=== PATIENT | male | born 1990 | race Caucasian/White ===

== ENCOUNTER 2023-02-10 22:35 | Emergency (ER) | payer MEDICARE, SELFPAY ==
[2023-02-10 22:35] VITALS: BP 140/87; PULSE 67; RESP 17; TEMP 36.6; O2SAT 99; BMI 28.7
--- NOTE | 2023-02-10 22:50 | ECG_ITS ---
APPROVED REPORT Exam: Resting ECG HR:84 bpm ECG Measurements Heart Rate 84 AXES IL 147 P 22 QRSd 101 QRS 34 QT 377 T -7 QTc 418 Conclusion SINUS RHYTHM POSSIBLE RIGHT VENTRICULAR CONDUCTION DELAY [RSR (QR) IN V1/V2] MODERATE ST DEPRESSION [0.05+ mV ST DEPRESSION] ABNORMAL ECG UNCONFIRMED REPORT Electronically signed by : Shubham Hinds MD 02/11/2023 21:25:46
--- NOTE | 2023-02-10 22:51 | PC.NURSE ---
in room talking with patient at this time.
--- NOTE | 2023-02-10 22:58 | PC.NURSE ---
BS 169 at this time
[2023-02-10 23:20] VITALS: BP 141/72; PULSE 71; O2SAT 97
--- NOTE | 2023-02-11 00:22 | PC.NURSE ---
Handed off report to shift boss
--- NOTE | 2023-02-11 00:28 | HMH.EDGENADL ---
Discharge Plan Disposition Patient Disposition: Home, Self-Care Prescriptions Prescriptions: No Action ticagrelor 90 MG tablet 90 mg PO BID Referrals Follow up/Referrals: Charla Santo [Primary Care Provider] - See instructions Activity Restrictions/Add. Instructions Additional Instructions/Restrictions: Please follow-up with your primary care provider. Please return to the emergency department if you develop any new or worsening symptoms or become concerned for your health. Clinical Impressions Clinical Impression: Alcohol intoxication delirium Discharge ED Provider: Ezekiel Stacy General Adult HPI General Chief complaint: Shortness of Breath/Dyspnea Stated complaint: ETOH Time Seen by Provider: 02/10/23 23:00 Mode of Arrival: EMS Source of Information: Patient and Significant Other Limitations: No Limitations Description of Symptoms (Recalled from ER Triage Doc. by RN): Presents to ED via EMS. EMS stated they got called out to his camper for SOA. Patient is unsure why he is here but states he drank a little less than a pint of Whiskey and smoked less than a gram of weed. After talking to she states patient was hard to arouse and was extremely short of air. She reports patient was Dx with bronchitis this morning. PMH:1 stent in 2019, diabetic, and Hep C. Patient takes baby aspirin History of Present Illness HPI narrative: 32-year-old male, history of insulin-dependent diabetes, presents with EMS with reported shortness of breath. He and his girlfriend and several others were drinking, patient has also smoked marijuana today. Per girlfriend, patient would intermittently be crying and then go unresponsive, prompting presentation to ER. On arrival patient has some slurred speech consistent with intoxication, has normal vital signs, has no acute complaints at this time. Request to go pee. Blood sugar normal with EMS Related Data Home Medications Medication Instructions Recorded Confirmed ticagrelor 90 mg tablet 90 mg PO BID heart 11/12/18 11/12/18 Allergies Allergy/AdvReac Type Severity Reaction Status Date / Time buspirone [BUSPIRONE] Allergy Unknown HEART Verified 01/03/18 18:55 PROBLEM codeine [CODEINE] Allergy Unknown I-HIVES Verified 01/03/18 18:55 [facility] Disclaimer: The information contained in this section may have been updated after the patient was seen, as this information can be updated by other users. Social History Smoking Status: Never smoker alcohol intake: never substance use type: marijuana current occupational status: other Travel in the last 8 weeks: None ROS Obtained: Yes All systems reviewed & no additional complaints except as documented Physical Exam General General appearance: alert and appears intoxicated Head Head exam: atraumatic and normocephalic Eye Eye exam: Present normal appearance, PERRL, EOMI and nystagmus ENT ENT exam: Present normal oropharynx and normal external ear exam Neck Neck exam: Present normal inspection and full ROM Chest Chest inspection: Present normal inspection and symmetric chest wall rise; Absent tenderness Respiratory Respiratory exam: Present normal lung sounds bilaterally; Absent respiratory distress Cardiovascular Cardiovascular exam: Present regular rate and normal rhythm Abdominal Exam Abdominal exam: Present soft; Absent distention, tenderness or guarding Extremities Exam Extremities exam: Present normal inspection; Absent edema or joint swelling Back Exam Back exam: Present normal inspection; Absent tenderness Neurological Exam Neurological exam: Present alert and other (Answers to some questions, appears intoxicated) Psychiatric Psychiatric exam: Present other (Anxious, intermittently crying versus somnolent); Absent homicidal ideation or suicidal ideation Skin Skin exam: Present warm, dry and normal color Lymphatic Lymphatic Findings: no adenopathy Medical Decision Making Medical Records Medic
--- NOTE | 2023-02-11 02:47 | PC.NURSE ---
pt will not keep bp cuff or pulse ox on no vitals obtained but patient checked on
[2023-02-11 02:52] VITALS: BP 117/70
[2023-02-11 03:00] VITALS: BP 128/78
--- NOTE | 2023-02-11 03:05 | PC.NURSE ---
BS 149 at this time
[2023-02-11 03:07] VITALS: BP 128/78; PULSE 82; RESP 12; TEMP 36.8; O2SAT 99
[2023-02-11 03:11] LABS: POC Glucose,Bedside 149 (70-110)
== END 2023-02-11 03:10 | disposition home or self-care (01) ==
PROVIDERS: Emergency Provider Emergency Medicine; PCP Family Medicine
DX: F10.121 Alcohol abuse with intoxication delirium (principal); E11.9 Type 2 diabetes mellitus without complications; Z79.4 Long term (current) use of insulin
CPT/HCPCS: 82962; 93005; 99284

== ENCOUNTER 2023-08-15 15:32 | Observation (INO) | payer MEDICARE, SELFPAY ==
[2023-08-15] VITALS (14 sets, daily range): BP systolic 120–158; BP diastolic 70–96; PULSE 15–80; RESP 10–20; TEMP 36.6–37.1; O2SAT 95–99; BMI 29.5
--- NOTE | 2023-08-15 15:24 | ECG_ITS ---
APPROVED REPORT Exam: Resting ECG HR:64 bpm ECG Measurements Heart Rate 64 AXES RI 127 P 32 QRSd 112 QRS 28 QT 369 T 18 QTc 378 Conclusion SINUS RHYTHM MODERATE INTRAVENTRICULAR CONDUCTION DELAY [110+ ms QRS DURATION] BORDERLINE ECG UNCONFIRMED REPORT Electronically signed by : Matt Ruffin, 08/15/2023 22:54:18
--- NOTE | 2023-08-15 15:34 | ED_ITS ---
Discharge Plan Disposition Patient Disposition: Admitted Prescriptions Prescriptions: No Action ticagrelor 90 MG tablet 90 mg PO BID Patient Comments: Patient no longer taking Rx Instructions: Patient no longer taking atorvastatin 80 mg tablet 80 mg PO DAILY isosorbide mononitrate 30 mg tablet extended release 24 hr 30 mg PO DAILY clopidogrel 75 mg tablet 75 mg PO DAILY doxycycline monohydrate 100 mg tablet 100 mg PO BID pantoprazole 40 mg tablet,delayed release (DR/EC) 40 mg PO BID lisinopril 10 mg tablet 10 mg PO DAILY nitroglycerin 0.4 mg tablet, sublingual 0.4 mg sublingual NEEDED PRN (Reason: .) metoprolol tartrate 25 mg tablet 25 mg PO Q12 Clinical Impressions Clinical Impression: Non-ST elevation UT (NSTEMI) Discharge ED Provider: Lisa Ruffin General Adult HPI <ROMAINE Hampton - Last Filed: 08/15/23 15:43> General Chief complaint: Chest Pain Stated complaint: Chest Pain Time Seen by Provider: 08/15/23 15:39 Related Data Home Medications Medication Instructions Recorded Confirmed ticagrelor 90 mg tablet 90 mg PO BID heart 11/12/18 11/12/18 atorvastatin 80 mg tablet 80 mg PO DAILY 08/15/23 08/15/23 clopidogrel 75 mg tablet 75 mg PO DAILY 08/15/23 08/15/23 doxycycline monohydrate 100 mg 100 mg PO BID 08/15/23 08/15/23 tablet isosorbide mononitrate 30 mg 30 mg PO DAILY 08/15/23 08/15/23 tablet,extended release 24 hr lisinopril 10 mg tablet 10 mg PO DAILY 08/15/23 08/15/23 metoprolol tartrate 25 mg tablet 25 mg PO Q12 08/15/23 08/15/23 nitroglycerin 0.4 mg sublingual 0.4 mg sublingual NEEDED PRN . 08/15/23 08/15/23 tablet pantoprazole 40 mg tablet,delayed 40 mg PO BID 08/15/23 08/15/23 release Allergies Allergy/AdvReac Type Severity Reaction Status Date / Time buspirone [BUSPIRONE] Allergy Unknown HEART Verified 01/03/18 18:55 PROBLEM codeine [CODEINE] Allergy Unknown I-HIVES Verified 01/03/18 18:55 <Lisa Ruffin MD - Last Filed: 08/15/23 16:53> History of Present Illness HPI narrative: Patient is a 33-year-old male with a history of coronary disease presents today with chest pain. States he first had a STEMI in 2019 at which point he was rushed to the [facility] had a stent placed at that point. Had a heart cath just a few days ago was discharged on from [facility] in [facility] he initially presented to [facility] where he had negative troponins but was sent ultimately to get a heart cath at [facility], [place] stating that he had another stent was placed in his LAD. He has had intermittent chest pain over the last 2 days has been on constant, nonexertional, not associated with dyspnea or diaphoresis and feels like something is stuck in my chest he has no difficulty with swallowing is tolerating his secretions well. Is on aspirin and Plavix per discharge medication list. He has a follow-up appointment tomorrow with Dr. Barrera states that he has his neighbor. Did take a nitroglycerin prior to arrival without any immediate relief. [facility] <ROMAINE Hampton - Last Filed: 08/15/23 15:43> [facility] Disclaimer: The information contained in this section may have been updated after the patient was seen, as this information can be updated by other users. Social History Smoking Status: Former smoker tobacco type: cigarettes packs per day: 1 alcohol intake: never substance use type: marijuana current occupational status: other Travel in the last 8 weeks: None <ROMAINE Hampton - Last Filed: 08/15/23 15:43> ROS Obtained: Yes Systems reviewed as appropriate & no additional complaints except as documented Physical Exam <ROMAINE Hampton - Last Filed: 08/15/23 15:43> General General appearance: alert and in no apparent distress Head Head exam: atraumatic and normal inspection Eye Eye exam: Present normal appearance, PERRL and EOMI ENT ENT exam: Present normal exam, normal oropharynx and mucous membranes moist Neck Neck exam: Present normal inspection, full ROM and trachea midline; Absent lymphadenopathy Chest Chest inspection: Present normal inspection and symmetric chest wall rise Respiratory Respiratory exam: Present normal lung sounds bilaterally; Absent accessory muscle use Cardiovascular Cardiovascular exam: Present regular rate, normal rhythm, normal heart sounds, +S1 and +S2 Abdominal Exam Abdominal exam: Present soft and normal bowel sounds; Absent tenderness, guarding or rebound Extremities Exam Extremities exam: Present normal inspection and full ROM Neurological Exam Neurological exam: Present alert, oriented X3 and CN II-XII intact Psychiatric Psychiatric exam: Present normal affect and normal mood Skin Skin exam: Present warm, dry and normal color Lymphatic Lymphatic Findings: no adenopathy Medical Decision Making <ROMAINE Hampton - Last Filed: 08/15/23 15:43> Vital Signs: 08/15/23 15:32 08/15/23 15:40 08/15/23 16:00 Temperature 98.0 F Temperature Source Oral Pulse Rate 68 58 L Pulse Rate [Left Radial] 15 L Respiratory Rate 15 20 Blood Pressure 126/81 Blood Pressure [Right Arm] 158/83 H Blood Pressure Mean 99 Blood Pressure Mean [Right Arm] 108 Blood Pressure Source Blood Pressure Source [Right Arm] Automatic Cuff Blood Pressure Position Blood Pressure Position [Right Arm] Sitting 02 Sat by Pulse Oximetry 98 98 Oxygen Delivery Method Room Air 08/15/23 16:02 08/15/23 16:30 Temperature 98.1 F Temperature Source Oral Pulse Rate 80 52 L Pulse Rate [Left Radial] Respiratory Rate 18 10 L Blood Pressure 155/96 H 120/80 Blood Pressure [Right Arm] Blood Pressure Mean Blood Pressure Mean [Right Arm] Blood Pressure Source Automatic Cuff Blood Pressure Source [Right Arm] Blood Pressure Position Sitting Blood Pressure Position [Right Arm] 02 Sat by Pulse Oximetry 99 Oxygen Delivery Method Room Air Room Air Lab Data Lab Results 08/15/23 15:35: WBC 12.3 H, RBC 4.30 L, Hgb 13.0 L, Hct 40.0 L, MCV 93.0, MCH 30.3, MCHC 32.6, RDW 13.6, Plt Count 317, MPV 7.6, Neut % (Auto) 58.7, Lymph % (Auto) 34.1, Trinity % (Auto) 4.8, Eos % (Auto) 1.6, Baso % (Auto) 0.7, Neut # (Auto) 7.2, Lymph # (Auto) 4.2, Trinity # (Auto) 0.6, Eos # (Auto) 0.2, Baso # (Auto) 0.1, Sodium 139, Potassium 4.3, Chloride 109 H, Carbon Dioxide 32 H, A nion Gap 2.3 L, BUN 17, Creatinine 0.80, Estimated Creat Clear 192, Estimated GFR 111, Est GFR ( Amer) 134, Glucose 217 H, Calcium 9.6, Total Bilirubin 0.5, AST 23, ALT 22, Alkaline Phosphatase 71, Troponin I 0.10 H, Total Protein 6.8, Albumin 3.8, Globulin 3.0, Albumin/Globulin Ratio 1.3, Lipase 116 08/15/23 15:35 08/15/23 15:35 Orders (Tests/Meds): ED MEDICATIONS Generic Name Dose Route Start Last Admin Trade Name Freq PRN Reason Stop Dose Admin Morphine Sulfate 4 mg 08/15/23 16:49 Morphine 4mg/Ml Syringe IV 08/15/23 16:50 ONCE ONE Discontinued Medications Generic Name Dose Route Start Last Admin Trade Name Freq PRN Reason Stop Dose Admin Acetaminophen 1,000 mg 08/15/23 15:39 08/15/23 15:50 Acetaminophen 1,000mg/100ml Vial IV 08/15/23 15:40 Not Given ONCE ONE Belladonna Alkaloids 60 ml 08/15/23 15:39 08/15/23 15:50 Belladonna Alkaloids 60 Ml Ml PO 08/15/23 15:40 Not Given ONCE ONE Lactated Ringer's 1,000 mls @ 999 mls/hr 08/15/23 15:39 08/15/23 15:51 Lactated Ringer's 1000 Ml Bag IV 08/15/23 16:39 Not Given .Q1H1M ONE Ketorolac Tromethamine 15 mg 08/15/23 15:39 08/15/23 15:51 Ketorolac 30mg/Ml Vial IV 08/15/23 15:40 Not Given ONCE ONE Sodium Chloride 10 ml 08/15/23 15:40 Sodium Chloride 0.9% 10ml Flush Syringe IV 09/14/23 15:39 NEEDED PRN Maintain IV Site ORDERS Category Date Time Status Chest XR -- portable [XR chest portable] Stat Exams 08/15/23 15:45 Taken CBC w/Auto Diff [Complete Blood Count Auto Diff] Stat Lab 08/15/23 15:35 Completed CMP [Comprehensive Metabolic Panel] Stat Lab 08/15/23 15:35 Completed Lipase Stat Lab 08/15/23 15:35 Completed Troponin I Q3H Lab 08/15/23 18:45 Ordered Troponin I Q3H Lab 08/15/23 19:00 Ordered Troponin I Q3H Lab 08/15/23 21:45 Ordered Troponin I Q3H Lab 08/15/23 22:00 Ordered Troponin I Stat Lab 08/15/23 15:35 Completed Medical Decision Narrative: In summary patient is a [age, sex] who presents to the emergency department for evaluation of [complaint]. Patient is [hemodynamically stable/unstable] upon arrival, [febrile/afebrile]. [Unremarkable physical exam, nonfocal exam versus focal remarkable exam]. Differential diagnosis includes [DDx]. Initial workup will be conducted with [hematologic labs, imaging, respiratory swab, describe workup]. Initial interventions include [crystalloid bolus, medications, p.o. challenge, etc.] initial workup reviewed by me [hematologic labs are remarkable for... Imaging remarkable for... Urinalysis remarkable for]. Upon repeat evaluation [patient had acceptable resolution of symptoms, had persistent pain for which additional interventions were conducted (describe interventions), tolerated p.o., was ambulatory, etc.]. Given this [patient is appropriate for discharge at this time and will be discharged with a prescription for... The case was discussed with hospital medicine regarding management and they will admit the patient their service for continued evaluation at this time... Etc.] Places where you can increase complexity: I informally interpreted the patient's chest x-ray or CT read and is remarkable for... Documenting what the front desk monitor shows with rate and rhythm Consideration of test but deferring. Ex: I considered chest x-ray on this patient however given that they have no oxygen requirement and are clear to auscultation all lung landrum will be deferred. Social determinants of health: Given that patient is undomiciled increases complexity. Given that patient has polysubstance abuse compounds all aspects of care <Lisa Ruffin MD - Last Filed: 08/15/23 16:53> Cristobal Inquiry Pt receiving controlled substance: No Vital Signs: 08/15/23 15:32 08/15/23 15:40 08/15/23 16:00 Temperature 98.0 F Temperature Source Oral Pulse Rate 68 58 L Pulse Rate [Left Radial] 15 L Respiratory Rate 15 20 Blood Pressure 126/81 Blood Pressure [Right Arm] 158/83 H Blood Pressure Mean 99 Blood Pressure Mean [Right Arm] 108 Blood Pressure Source Blood Pressure Source [Right Arm] Automatic Cuff Blood Pressure Position Blood Pressure Position [Right Arm] Sitting 02 Sat by Pulse Oximetry 98 98 Oxygen Delivery Method Room Air 08/15/23 16:02 08/15/23 16:30 Temperature 98.1 F Temperature Source Oral Pulse Rate 80 52 L Pulse Rate [Left Radial] Respiratory Rate 18 10 L Blood Pressure 155/96 H 120/80 Blood Pressure [Right Arm] Blood Pressure Mean Blood Pressure Mean [Right Arm] Blood Pressure Source Automatic Cuff Blood Pressure Source [Right Arm] Blood Pressure Position Sitting Blood Pressure Position [Right Arm] 02 Sat by Pulse Oximetry 99 Oxygen Delivery Method Room Air Room Air Lab Data Lab results reviewed: Yes I reviewed the patient's lab results. Lab Results 08/15/23 15:35: WBC 12.3 H, RBC 4.30 L, Hgb 13.0 L, Hct 40.0 L, MCV 93.0, MCH 30.3, MCHC 32.6, RDW 13.6, Plt Count 317, MPV 7.6, Neut % (Auto) 58.7, Lymph % (Auto) 34.1, Trinity % (Auto) 4.8, Eos % (Auto) 1.6, Baso % (Auto) 0.7, Neut # (Auto) 7.2, Lymph # (Auto) 4.2, Trinity # (Auto) 0.6, Eos # (Auto) 0.2, Baso # (Auto) 0.1, Sodium 139, Potassium 4.3, Chloride 109 H, Carbon Dioxide 32 H, A nion Gap 2.3 L, BUN 17, Creatinine 0.80, Estimated Creat Clear 192, Estimated GFR 111, Est GFR ( Amer) 134, Glucose 217 H, Calcium 9.6, Total Bilirubin 0.5, AST 23, ALT 22, Alkaline Phosphatase 71, Troponin I 0.10 H, Total Protein 6.8, Albumin 3.8, Globulin 3.0, Albumin/Globulin Ratio 1.3, Lipase 116 Orders (Tests/Meds): ED MEDICATIONS Generic Name Dose Route Start Last Admin Trade Name Freq PRN Reason Stop Dose Admin Morphine Sulfate 4 mg 08/15/23 16:49 Morphine 4mg/Ml Syringe IV 08/15/23 16:50 ONCE ONE Discontinued Medications Generic Name Dose Route Start Last Admin Trade Name Freq PRN Reason Stop Dose Admin Acetaminophen 1,000 mg 08/15/23 15:39 08/15/23 15:50 Acetaminophen 1,000mg/100ml Vial IV 08/15/23 15:40 Not Given ONCE ONE Belladonna Alkaloids 60 ml 08/15/23 15:39 08/15/23 15:50 Belladonna Alkaloids 60 Ml Ml PO 08/15/23 15:40 Not Given ONCE ONE Lactated Ringer's 1,000 mls @ 999 mls/hr 08/15/23 15:39 08/15/23 15:51 Lactated Ringer's 1000 Ml Bag IV 08/15/23 16:39 Not Given .Q1H1M ONE Ketorolac Tromethamine 15 mg 08/15/23 15:39 08/15/23 15:51 Ketorolac 30mg/Ml Vial IV 08/15/23 15:40 Not Given ONCE ONE Sodium Chloride 10 ml 08/15/23 15:40 Sodium Chloride 0.9% 10ml Flush Syringe IV 09/14/23 15:39 NEEDED PRN Maintain IV Site ORDERS Category Date Time Status Chest XR -- portable [XR chest portable] Stat Exams 08/15/23 15:45 Taken CBC w/Auto Diff [Complete Blood Count Auto Diff] Stat Lab 08/15/23 15:35 Completed CMP [Comprehensive Metabolic Panel] Stat Lab 08/15/23 15:35 Completed Lipase Stat Lab 08/15/23 15:35 Completed Troponin I Q3H Lab 08/15/23 18:45 Ordered Troponin I Q3H Lab 08/15/23 19:00 Ordered Troponin I Q3H Lab 08/15/23 21:45 Ordered Troponin I Q3H Lab 08/15/23 22:00 Ordered Troponin I Stat Lab 08/15/23 15:35 Completed ECG Data Tracing #1: I reviewed this ECG and interpreted as documented below: Ventricular rate of 64 there is normal axis no acute ischemic changes noted no significant conduction abnormalities HEART Score History (anamnesis): Slightly suspicious ECG: Normal Age: <45 years Risk factors: Atherosclerosis history Troponin: > 3x normal limit HEART Score: 4 Medical Decision Narrative: Patient is a 33-year-old with above history. Has a nonischemic EKG is very well-appearing on my evaluation will need serial troponins to rule out acute coronary syndrome. In our system from 2017 he had an elevated troponin but at that time had an abnormal methamphetamine screen he admits to ongoing marijuana smoking but denies any other drug use. We are attempting to get records from [facility] [place]. He is PERC negative for pulmonary embolism is not on my differential at this point. His description of having something stuck in his throat is nonspecific he has no symptoms of an esophageal obstruction. Will reassess after his initial workup is complete. X-ray performed which I first interpreted shows no acute cardiopulmonary emergency. Records were obtained which showed that patient had serial troponins that were negative at [place] he was transferred for unstable angina treated for acute coronary syndrome had a left heart cath performed at [facility] [place] which showed severe two-vessel disease including his LAD which had 80% proximal 95% distal disease this was successfully stented. There was also 90% stenosis in RPDA which was not stented for unclear reasons. He also had serially negative high-sensitivity troponins at [facility] [place]. Today is first troponin is mildly elevated 3 times upper limit of normal. He is also ongoing chest discomfort morphine has been administered. I discussed the case with Dr. Barrera and we agreed to admit the patient for further evaluation and management. Will continue to trend troponins and get an echo in the morning. It is possible this is just a vasculitis or spasming secondary to recent stent placement I would expect that his troponin will trend down without the case. However it continues to trend up this certainly could be ongoing tissue damage. He is currently on dual antiplatelet therapy including aspirin and Plavix. He has had his medications today. Will defer further anticoagulation to hospital medicine. I spoke with Dr. Larson after discussion with cardiology who will admit the patient for further evaluation and management the patient is agreeable to this plan. Critical Care <Lisa Ruffin MD - Last Filed: 08/15/23 16:53> Critical Care Time Critical Care Time: Yes Attestation: On 08/15/23, the high probability of a clinically significant, sudden or life threatening deterioration of the following system(s) required my full and direct attention, intervention and personal management. The time I documented below is in addition to time spent performing reported procedures but includes the following listed in this critical care notation. Total Time Total Critical Care Time: 35
--- NOTE | 2023-08-15 15:45 | XR_ITS ---
FINAL REPORT CLINICAL HISTORY: Chest pain COMPARISON: None FINDINGS: A single portable view of the chest was obtained. The heart size and pulmonary vascularity are within normal limits. The mediastinum is within normal limits. No acute pulmonary abnormality is identified. The bony thorax is intact. IMPRESSION: No active cardiopulmonary disease. Reviewed, Interpreted and Dictated by Remington Wei III, MD Transcribed by Estrellita Rich Authenticated and [facility]
--- NOTE | 2023-08-15 15:50 | PC.NURSE ---
Dr. Ruffin at BS for pt eval
--- NOTE | 2023-08-15 15:50 | PC.NURSE ---
portable chest xray at bedside
[2023-08-15 15:51] LABS: Basophils # 0.1 K/mm3 (0-0.2); Basophils % 0.7 % (0.1-2.0); Eosinophils # 0.2 K/mm3 (0.0-0.4); Eosinophils % 1.6 % (0.1-12.0); Lymphocytes # 4.2 K/mm3 (0.7-4.5); Lymphocytes % 34.1 % (10-50); Mean Corpuscular HGB Conc 32.6 g/dL (31.8-35.4); Mean Corpuscular Hemoglobin 30.3 pg (27.0-31.2); Mean Platelet Volume 7.6 fl (7.4-10.4); Monocytes # 0.6 K/mm3 (0.1-1.0); Monocytes % 4.8 % (1.7-9.3); Neutrophils # 7.2 K/mm3 (1.8-7.8); Neutrophils % 58.7 % (37.0-80.0); Platelet Count 317 K/mm3 (142-424); Red Cell Distribution Width 13.6 % (11.5-17.5); White Blood Count 12.3 K/mm3 (4.8-10.8)
[2023-08-15 15:52] LABS: Chloride 109 mmol/L (98-107); Potassium 4.3 mmoL/L (3.5-5.1); Sodium 139 mmol/L (136-145)
--- NOTE | 2023-08-15 15:52 | PC.NURSE ---
called [facility] for records on pt recent visit and cath procedure
[2023-08-15 15:55] LABS: Alanine Aminotransferase 22 U/L (12-78); Albumin Level 3.8 g/dl (3.5-5.0); Albumin/Globulin Ratio 1.3 (1.1-1.8); Alkaline Phosphatase 71 U/L (38-126); Anion Gap 2.3 mEq/L (5-15); Aspartate Amino Transferase 23 U/L (17-59); Bilirubin,Total 0.5 mg/dl (0.2-1.3); Blood Urea Nitrogen 17 mg/dl (9-20); Calcium 9.6 mg/dl (8.4-10.2); Carbon Dioxide 32 mmol/L (22.0-30.0); Creatinine Clearance Estimated 192 mL/min (50-200); Estimated Glomerular Filt Rate 111 ml/min (>60); GFR (African American) 134 ML/MIN (>60); Glucose 217 mg/dl (74-100); Total Protein,Serum 6.8 g/dl (6.3-8.2)
[2023-08-15 16:15] LABS: Lipase 116 U/L (23-300)
--- NOTE | 2023-08-15 16:58 | PC.NURSE ---
house called for bed
[2023-08-15] MEDS: MORPHINE 4MG/ML SYRINGE 4 MG IV (17:10)
--- NOTE | 2023-08-15 17:22 | PC.NURSE ---
CALLED REPORT TO LIONEL FUENTES
--- NOTE | 2023-08-15 17:29 | PC.NURSE ---
arrived by w/c from ED
--- NOTE | 2023-08-15 17:45 | P.HP_ITS ---
History of Present Illness *Admission Date: 08/15/23 *Reason for visit:: chest pain *History of present illness: Patient is a 53-year-old female with past medical history of CAD, hypertension, hyperlipidemia who presents to the hospital due to complaint of chest pain for the past 48 hours, it feels like a heaviness in his chest, denies associated shortness of breath nausea vomiting. According the patient he recently had cardiac performed in [facility]. He follows up with Dr. Jorgensen as his slitting machine feeder who recommended troponin monitoring and echocardiogram. [facility] Disclaimer: The information contained in this section may have been updated after the patient was seen, as this information can be updated by other users. Medical History (Updated 08/15/23 @ 17:54 by Tomasz Mesa RN) Diabetes mellitus, type 2 History of left heart catheterization (LHC) Family History (Updated 08/15/23 @ 17:52 by Tomasz Mesa RN) Other Family history of hypertension Family history of myocardial infarction Social History (Updated 08/15/23 @ 17:55 by Tomasz Mesa RN) Smoking Status: Former smoker tobacco type: cigarettes packs per day: 1 alcohol intake: never substance use type: marijuana current occupational status: employed and other Travel in the last 8 weeks: None adopted: No caregiver/support person: No foster care: No household members: spouse housing: house lives independently: Yes marital status: education level: high school service: No jail: No Review of Systems Review of Systems Review of systems:: pertinent systems reviewed and negative unless documented below Meds Home Medications and Allergies Home Medications Medication Instructions Recorded Confirmed Type ticagrelor 90 mg tablet 90 mg PO BID heart 11/12/18 11/12/18 History atorvastatin 80 mg tablet 80 mg PO DAILY 08/15/23 08/15/23 History clopidogrel 75 mg tablet 75 mg PO DAILY 08/15/23 08/15/23 History doxycycline monohydrate 100 mg 100 mg PO BID 08/15/23 08/15/23 History tablet insulin glargine 100 unit/mL (3 20 unit SQ AM 08/15/23 08/15/23 History mL) subcutaneous pen (Lantus Solostar U-100 Insulin) insulin glargine 100 unit/mL (3 25 unit SQ HS 08/15/23 08/15/23 History mL) subcutaneous pen (Lantus Solostar U-100 Insulin) isosorbide mononitrate 30 mg 30 mg PO DAILY 08/15/23 08/15/23 History tablet,extended release 24 hr lisinopril 10 mg tablet 10 mg PO DAILY 08/15/23 08/15/23 History metoprolol tartrate 25 mg tablet 25 mg PO Q12 08/15/23 08/15/23 History nicotine 21 mg/24 hr daily 1 patch transdermal Q24H 08/15/23 08/15/23 History transdermal patch nitroglycerin 0.4 mg sublingual 0.4 mg sublingual NEEDED PRN . 08/15/23 08/15/23 History tablet pantoprazole 40 mg tablet,delayed 40 mg PO BID 08/15/23 08/15/23 History release New Prescriptions to Start Prescriptions: Allergies Allergy/AdvReac Type Severity Reaction Status Date / Time buspirone [BUSPIRONE] Allergy Unknown HEART Verified 01/03/18 18:55 PROBLEM codeine [CODEINE] Allergy Unknown I-HIVES Verified 01/03/18 18:55 fentanyl Allergy Anaphylaxis Verified 08/15/23 18:06 Exam Data for Last 24 hours Vital signs and Labs for Last 24 Hours: Temp Pulse Resp BP Pulse Ox O2 Del Method 97.9 F 52 L 16 144/76 H 98 Room Air 08/15/23 17:24 08/15/23 17:24 08/15/23 17:24 08/15/23 17:24 08/15/23 17:01 08/15/23 17:24 Laboratory Results - last 24 hr 08/15/23 15:35: WBC 12.3 H, RBC 4.30 L, Hgb 13.0 L, Hct 40.0 L, MCV 93.0, MCH 30.3, MCHC 32.6, RDW 13.6, Plt Count 317, MPV 7.6, Neut % (Auto) 58.7, Lymph % (Auto) 34.1, [place] % (Auto) 4.8, Eos % (Auto) 1.6, Baso % (Auto) 0.7, Neut # (Auto) 7.2, Lymph # (Auto) 4.2, [place] # (Auto) 0.6, Eos # (Auto) 0.2, Baso # (Auto) 0.1, Sodium 139, Potassium 4.3, Chloride 109 H, Carbon Dioxide 32 H, Anion Gap 2.3 L, BUN 17, Creatinine 0.80, Estimated Creat Clear 192, Estimated GFR 111, Est GFR ( Amer) 134, Glucose 217 H, Calcium 9.6, Total Bilirubin 0.5, AST 23, ALT 22, Alkaline Phosphatase 71, Troponin I 0.10 H, Total Protein 6.8, Albumin 3.8, Globulin 3.0, Albumin/Globulin Ratio 1.3, Lipase 116 I & O for Last 24 hours: Intake & Output 08/12/23 08/13/23 08/14/23 08/15/23 23:59 23:59 23:59 23:59 Weight 104.326 kg Constitutional Constitutional: no acute distress *Routine HEENT Exam Head: Present normocephalic Eye: Present EOMI and PERRL ENT: Present mucous membranes moist *Routine Neck Exam Neck: Present supple; Absent lymphadenopathy *Routine Respiratory Exam Respiratory: Present CTA bilaterally *Routine Cardiovascular Exam Cardiovascular: Present RRR *Routine Abdominal Exam Abdominal: Present soft and normoactive bowel sounds; Absent tenderness *Routine Rectal Exam Rectal:: deferred *Routine Genitalia Exam Genitalia:: deferred *Routine Extremities Exam Extremities: Absent cyanosis, clubbing or edema *Routine Skin Exam Skin: Present warm; Absent rash *Routine Neurological Exam Neurological: Present alert and oriented X3 Assessment and Plan *Assessment and plan (1) Non-ST elevation AL (NSTEMI): Status: Acute Category: Medical Code(s): I21.4 - Non-ST elevation (NSTEMI) myocardial infarction (2) Uncontrolled diabetes mellitus: Status: Acute Category: Medical Code(s): E11.65 - Type 2 diabetes mellitus with hyperglycemia Plan Patient is a 53-year-old female with past medical history of CAD, hypertension, hyperlipidemia who presents to the hospital due to complaint of chest pain for the past 48 hours, it feels like a heaviness in his chest, denies associated shortness of breath nausea vomiting. According the patient he recently had cardiac performed in [facility]. He follows up with Dr. Jorgensen as his slitting machine feeder who recommended troponin monitoring and echocardiogram. 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
[2023-08-15] MEDS: HEPARIN SODIUM 5,000 UNIT/ML VIAL 5000 UNIT SQ (18:11)
[2023-08-15] MEDS: NITROGLYCERIN 0.4MG SL TABLET 0.400000000000000022 MG SL ×2 (19:30→19:35)
--- NOTE | 2023-08-15 19:31 | ECG_ITS ---
APPROVED REPORT Exam: Resting ECG HR:65 bpm ECG Measurements Heart Rate 65 AXES OH 125 P 19 QRSd 101 QRS 34 QT 404 T 25 QTc 415 Conclusion SINUS RHYTHM WITH SINUS ARRHYTHMIA NORMAL ECG UNCONFIRMED REPORT Electronically signed by : Shubham Hinds MD 08/16/2023 21:35:45
[2023-08-15] MEDS: MORPHINE 2MG/ML SYRINGE 1 MG IV ×3 (19:41→23:56)
[2023-08-15 19:52] LABS: Troponin I 0.11 ng/ml (0.00-0.034)
[2023-08-15] MEDS: TICAGRELOR 90MG TABLET 90 MG PO (20:39)
[2023-08-15] MEDS: PANTOPRAZOLE 40MG TABLET 40 MG PO (20:39)
[2023-08-15 22:10] LABS: POC Glucose,Bedside 124 (70-110)
[2023-08-15 22:16] LABS: Troponin I 0.12 ng/ml (0.00-0.034)
[2023-08-15] MEDS: METOPROLOL TARTRATE 25MG TABLET 25 MG PO (23:32)
[2023-08-15] MEDS: NICOTINE 21MG/24HR PATCH 21 MG TD (23:33)
[2023-08-16] VITALS (10 sets, daily range): BP systolic 101–135; BP diastolic 55–88; PULSE 50–70; RESP 16–18; TEMP 36.6–36.8; O2SAT 98–99; BMI 30.9
--- NOTE | 2023-08-16 01:43 | PC.NURSE ---
pt reported increased mid sternal cp that begins in the epigastric region and goes into mid sternum down left arm. reports sharp in nature, pain 10/10. ekg completed. bp 132/81 hr. 55, 1 ntg sl given. repeat bp 135/74 hr 58, pain unchanged, 2nd ntg sl administered. repeat bp 129/70, hr 69, pain unrelieved. morphine 1 mg ivp given with decrease in pain from a 10 down to 8. notified ayaka hobson. notified dr urbina of event also. no new orders received
[2023-08-16] MEDS: HEPARIN SODIUM 5,000 UNIT/ML VIAL 5000 UNIT SQ ×2 (02:10→08:30)
[2023-08-16 02:54] LABS: Troponin I 0.13 ng/ml (0.00-0.034)
[2023-08-16] MEDS: MORPHINE 2MG/ML SYRINGE 1 MG IV ×2 (05:51→08:27)
[2023-08-16 06:04] LABS: POC Glucose,Bedside 134 (70-110)
[2023-08-16 06:55] LABS: Basophils # 0.1 K/mm3 (0-0.2); Basophils % 0.7 % (0.1-2.0); Eosinophils # 0.3 K/mm3 (0.0-0.4); Eosinophils % 2.5 % (0.1-12.0); Hematocrit 39.5 % (42.0-52.0); Hemoglobin 12.9 g/dL (14.1-18.0); Lymphocytes # 4.4 K/mm3 (0.7-4.5); Lymphocytes % 39.2 % (10-50); Mean Corpuscular HGB Conc 32.8 g/dL (31.8-35.4); Mean Corpuscular Hemoglobin 30.4 pg (27.0-31.2); Mean Corpuscular Volume 92.6 fl (80-94); Mean Platelet Volume 7.5 fl (7.4-10.4); Monocytes # 0.6 K/mm3 (0.1-1.0); Monocytes % 5.5 % (1.7-9.3); Neutrophils # 5.8 K/mm3 (1.8-7.8); Platelet Count 300 K/mm3 (142-424); Red Blood Count 4.26 M/mm3 (4.60-6.20); Red Cell Distribution Width 13.6 % (11.5-17.5); White Blood Count 11.1 K/mm3 (4.8-10.8)
[2023-08-16 06:59] LABS: Anion Gap 10.6 mEq/L (5-15); Blood Urea Nitrogen 15 mg/dl (9-20); Calcium 9.2 mg/dl (8.4-10.2); Carbon Dioxide 28 mmol/L (22.0-30.0); Chloride 104 mmol/L (98-107); Creatinine Clearance Estimated 202 mL/min (50-200); Estimated Glomerular Filt Rate 111 ml/min (>60); GFR (African American) 134 ML/MIN (>60); Glucose 136 mg/dl (74-100); Potassium 3.6 mmoL/L (3.5-5.1); Sodium 139 mmol/L (136-145)
--- NOTE | 2023-08-16 07:46 | EXP.DC.SUM ---
General Admission date:: 08/15/23 Discharge date: 08/16/23 HPI HPI HPI: Patient is a 33-year-old female with past medical history of CAD, hypertension, hyperlipidemia who presents to the hospital due to complaint of chest pain for the past 48 hours, it feels like a heaviness in his chest, denies associated shortness of breath nausea vomiting. According the patient he recently had cardiac performed in [facility]. He follows up with Dr. Jorgensen as his criminalist technician who recommended troponin monitoring and echocardiogram. Hospital Course Hospital Course Hospital Course: Patient is a 53-year-old female with past medical history of CAD, hypertension, hyperlipidemia who presents to the hospital due to complaint of chest pain for the past 48 hours, it feels like a heaviness in his chest, denies associated shortness of breath nausea vomiting. According the patient he recently had cardiac performed in [facility]. He follows up with Dr. Barrera as his criminalist technician who recommended troponin monitoring and echocardiogram. Continue to have discomfort overnight. Cardiology evaluated. Taken for cath with no significant lesions. Recommended aggressive risk factor modification. Stable to discharge home with close follow-up as an outpatient with cardiology. Problems addressed as follows: CAD Angina NSTEMI -Admitted for observation overnight. Serial troponins stable at 0.13. No changes on EKG or telemetry. Patient underwent successful stenting to his ostial proximal LAD with 4 drug-eluting stents at [facility] on 08/09. Continues to have chest discomfort. Taken for heart cath today, no new occlusions. Stents patent. 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 Persistent stenosis in the posterior descending artery which is not producing his pain or elevated troponin. Recommend continuing medical management. Cardiology recommends aggressive risk factor modification. Will continue treatment with Lipitor 80 mg daily, Plavix 75 mg daily, isosorbide mononitrate 30 mg daily, metoprolol tartrate 25 mg daily, aspirin 81 mg daily, and lisinopril 10 mg daily. Close follow-up with cardiology in the coming days. Echo obtained, formal read still pending at discharge. Preliminary shows normal EF. Insulin-dependent diabetes -A1c 7.4. Could use better control. Complicates his risk for continued CAD along with his smoking history. Continue home and regimen of this 20 units in the morning and 25 at night. Cardiology to discuss potentially initiating Ozempic as outpatient. Discussed smoking cessation. Patches sent at discharge. Stable to discharge home. Total time spent on discharge 35 minutes in counseling, documentation, chart review, and direct care with patient. Exam Data for Last 24 hours Vital signs and Labs for Last 24 Hours: Temp Pulse Resp BP Pulse Ox O2 Del Method 97.9 F 62 18 128/55 L 99 Room Air 08/16/23 04:00 08/16/23 04:00 08/16/23 04:00 08/16/23 04:00 08/16/23 04:00 08/16/23 07:00 Laboratory Results - last 24 hr 08/15/23 15:35: WBC 12.3 H, RBC 4.30 L, Hgb 13.0 L, Hct 40.0 L, MCV 93.0, MCH 30.3, MCHC 32.6, RDW 13.6, Plt Count 317, MPV 7.6, Neut % (Auto) 58.7, Lymph % (Auto) 34.1, [place] % (Auto) 4.8, Eos % (Auto) 1.6, Baso % (Auto) 0.7, Neut # (Auto) 7.2, Lymph # (Auto) 4.2, [place] # (Auto) 0.6, Eos # (Auto) 0.2, Baso # (Auto) 0.1, Sodium 139, Potassium 4.3, Chloride 109 H, Carbon Dioxide 32 H, Anion Gap 2.3 L, BUN 17, Creatinine 0.80, Estimated Creat Clear 192, Estimated GFR 111, Est GFR ( Amer) 134, Glucose 217 H, Calcium 9.6, Total Bilirubin 0.5, AST 23, ALT 22, Alkaline Phosphatase 71, Troponin I 0.10 H, Total Protein 6.8, Albumin 3.8, Globulin 3.0, Albumin/Globulin Ratio 1.3, Lipase 116 08/15/23 19:10: Troponin I 0.11 H 08/15/23 21:39: Troponin I 0.12 H 08/15/23 22:01: POC Glucose 124 H 08/16/23 02:23: Troponin I 0.13 H 08/16/23 05:57: POC Glucose 134 H 08/16/23 06:16: WBC 11.1 H, RBC 4.26 L, Hgb 12.9 L, Hct 39.5 L, MCV 92.6, MCH 30.4, MCHC 32.8, RDW 13.6, Plt Count 300, MPV 7.5, Neut % (Auto) 52.0, Lymph % (Auto) 39.2, [place] % (Auto) 5.5, Eos % (Auto) 2.5, Baso % (Auto) 0.7, Neut # (Auto) 5.8, Lymph # (Auto) 4.4, [place] # (Auto) 0.6, Eos # (Auto) 0.3, Baso # (Auto) 0.1, Sodium 139, Potassium 3.6, Chloride 104, Carbon Dioxide 28, Anion Gap 10.6, BUN 15, Creatinine 0.80, Estimated Creat Clear 202, Estimated GFR 111, Est GFR ( Amer) 134, Glucose 136 H D, Calcium 9.2 I & O for Last 24 hours: Intake & Output 08/13/23 08/14/23 08/15/23 08/16/23 23:59 23:59 23:59 23:59 Intake Total 360 / 360 Output Total 0 / 0 0 / 0 Balance 360 / 360 0 / 0 Weight 104.326 kg 109.588 kg Constitutional Constitutional: no acute distress, average body habitus and chronically ill appearing *Routine HEENT Exam Head: Present normocephalic Eye: Present EOMI and PERRL ENT: Present mucous membranes moist Comments: poor dentition *Routine Neck Exam Neck: Present supple; Absent lymphadenopathy Routine Chest/Breast/Axilla Exam Chest wall: Absent tenderness *Routine Respiratory Exam Respiratory: Present CTA bilaterally; Absent rhonchi, wheezes or crackles *Routine Cardiovascular Exam Cardiovascular: Present RRR *Routine Abdominal Exam Abdominal: Present soft and normoactive bowel sounds; Absent tenderness *Routine Rectal Exam Patient deferred: visual exam *Routine Exam Patient deferred: penile exam *Routine Extremities Exam Extremities: Absent cyanosis, clubbing or edema *Routine Skin Exam Skin: Present intact and warm; Absent rash *Routine Neurological Exam Neurological: Present alert, oriented X3 and moving all extremities; Absent altered mental status Results Data Completed and Pending Labs on day of discharge: Labs from last 24 hours 08/16/23 08/16/23 08/16/23 06:16 05:57 02:23 WBC 11.1 H RBC 4.26 L Hgb 12.9 L Hct 39.5 L MCV 92.6 MCH 30.4 MCHC 32.8 RDW 13.6 Plt Count 300 MPV 7.5 Neut % (Auto) 52.0 Lymph % (Auto) 39.2 [place] % (Auto) 5.5 Eos % (Auto) 2.5 Baso % (Auto) 0.7 Neut # (Auto) 5.8 Lymph # (Auto) 4.4 [place] # (Auto) 0.6 Eos # (Auto) 0.3 Baso # (Auto) 0.1 Sodium 139 Potassium 3.6 Chloride 104 Carbon Dioxide 28 Anion Gap 10.6 BUN 15 Creatinine 0.80 Estimated Creat Clear 202 Estimated GFR 111 Est GFR ( Amer) 134 Glucose 136 H D POC Glucose 134 H Calcium 9.2 Total Bilirubin AST ALT Alkaline Phosphatase Troponin I 0.13 H Total Protein Albumin Globulin Albumin/Globulin Ratio Lipase 08/15/23 08/15/23 08/15/23 22:01 21:39 19:10 WBC RBC Hgb Hct MCV MCH MCHC RDW Plt Count MPV Neut % (Auto) Lymph % (Auto) [place] % (Auto) Eos % (Auto) Baso % (Auto) Neut # (Auto) Lymph # (Auto) [place] # (Auto) Eos # (Auto) Baso # (Auto) Sodium Potassium Chloride Carbon Dioxide Anion Gap BUN Creatinine Estimated Creat Clear Estimated GFR Est GFR ( Amer) Glucose POC Glucose 124 H Calcium Total Bilirubin AST ALT Alkaline Phosphatase Troponin I 0.12 H 0.11 H Total Protein Albumin Globulin Albumin/Globulin Ratio Lipase 08/15/23 15:35 WBC 12.3 H RBC 4.30 L Hgb 13.0 L Hct 40.0 L MCV 93.0 MCH 30.3 MCHC 32.6 RDW 13.6 Plt Count 317 MPV 7.6 Neut % (Auto) 58.7 Lymph % (Auto) 34.1 [place] % (Auto) 4.8 Eos % (Auto) 1.6 Baso % (Auto) 0.7 Neut # (Auto) 7.2 Lymph # (Auto) 4.2 [place] # (Auto) 0.6 Eos # (Auto) 0.2 Baso # (Auto) 0.1 Sodium 139 Potassium 4.3 Chloride 109 H Carbon Dioxide 32 H Anion Gap 2.3 L BUN 17 Creatinine 0.80 Estimated Creat Clear 192 Estimated GFR 111 Est GFR ( Amer) 134 Glucose 217 H POC Glucose Calcium 9.6 Total Bilirubin 0.5 AST 23 ALT 22 Alkaline Phosphatase 71 Troponin I 0.10 H Total Protein 6.8 Albumin 3.8 Globulin 3.0 Albumin/Globulin Ratio 1.3 Lipase 116 DS: Diagnosis Discharge Diagnosis (1) Non-ST elevation MD (NSTEMI): Status: Acute Code(s): I21.4 - Non-ST elevation (NSTEMI) myocardial infarction (2) Uncontrolled diabetes mellitus: Status: Acute Code(s): E11.65 - Type 2 diabetes mellitus with hyperglycemia Meds Home Medications and Allergies Home Medications Medication Instructions Recorded Confirmed Type atorvastatin 80 mg tablet 80 mg PO DAILY 08/15/23 08/15/23 History clopidogrel 75 mg tablet 75 mg PO DAILY 08/15/23 08/15/23 History doxycycline monohydrate 100 mg 100 mg PO BID 08/15/23 08/15/23 History tablet insulin glargine 100 unit/mL (3 20 unit SQ AM 08/15/23 08/15/23 History mL) subcutaneous pen (Lantus Solostar U-100 Insulin) insulin glargine 100 unit/mL (3 25 unit SQ HS 08/15/23 08/15/23 History mL) subcutaneous pen (Lantus Solostar U-100 Insulin) isosorbide mononitrate 30 mg 30 mg PO DAILY 08/15/23 08/15/23 History tablet,extended release 24 hr lisinopril 10 mg tablet 10 mg PO DAILY 08/15/23 08/15/23 History metoprolol tartrate 25 mg tablet 25 mg PO BID 08/15/23 08/16/23 History nitroglycerin 0.4 mg sublingual 0.4 mg sublingual Q5MINP PRN Chest 08/15/23 08/16/23 History tablet Pain pantoprazole 40 mg tablet,delayed 40 mg PO BID 08/15/23 08/15/23 History release aspirin 81 mg tablet,delayed 81 mg PO DAILY 08/16/23 08/16/23 History release nicotine 21 mg/24 hr daily 21 mg transdermal DAILYP PRN 08/16/23 Rx transdermal patch Nicotine Cravings 28 days #28 ea New Prescriptions to Start Prescriptions: Matt Haile Allergies Allergy/AdvReac Type Severity Reaction Status Date / Time buspirone [BUSPIRONE] Allergy Unknown HEART Verified 01/03/18 18:55 PROBLEM codeine [CODEINE] Allergy Unknown I-HIVES Verified 01/03/18 18:55 fentanyl Allergy Anaphylaxis Verified 08/15/23 18:06 Discharge Plan Disposition Patient Disposition: Home, Self-Care Condition: Good Follow up Plan Follow up with: Charla Santo [Primary Care Provider] - 09/09/23 1:40 pm Daquan Barrera MD [Staff Physician] - 08/23/23 11:00 am Prescriptions/Medication Reconciliation: New nicotine 21 mg/24 hr Patch 24 Hour 21 mg transdermal DAILYP PRN (Reason: Nicotine Cravings) 28 Days Qty: 28 0RF Continued atorvastatin 80 mg tablet 80 mg PO DAILY isosorbide mononitrate 30 mg tablet extended release 24 hr 30 mg PO DAILY clopidogrel 75 mg tablet 75 mg PO DAILY doxycycline monohydrate 100 mg tablet 100 mg PO BID pantoprazole 40 mg tablet,delayed release (DR/EC) 40 mg PO BID lisinopril 10 mg tablet 10 mg PO DAILY nitroglycerin 0.4 mg tablet, sublingual 0.4 mg sublingual Q5MINP PRN (Reason: Chest Pain) metoprolol tartrate 25 mg tablet 25 mg PO BID insulin glargine [Lantus Solostar U-100 Insulin] 100 unit/mL (3 mL) insulin pen 20 unit SQ AM insulin glargine [Lantus Solostar U-100 Insulin] 100 unit/mL (3 mL) insulin pen 25 unit SQ HS aspirin 81 mg Tablet,Delayed Release (Dr/Ec) 81 mg PO DAILY Discontinued nicotine 21 mg/24 hr Patch 24 Hour 1 patch TRANSDERMAL Q24H Problem Reconciliation Problems Reviewed?: Yes Patient Discharge Instructions ACTIVITY: Continue current activity DIET: continue same diet Patient Instructions: DI for Cardiac Catheterization, DI for Surgical Site Infection, DI for Chest Pain Providers Primary Care Provider: Charla Santo Admit Provider: Winston Larson Attending Provider: Winston Larson
[2023-08-16] MEDS: ISOSORBIDE MONO 30MG TAB.ER.24H 30 MG PO (08:24)
[2023-08-16] MEDS: PANTOPRAZOLE 40MG TABLET 40 MG PO (08:24)
[2023-08-16] MEDS: TICAGRELOR 90MG TABLET 90 MG PO (08:24)
[2023-08-16] MEDS: METOPROLOL TARTRATE 25MG TABLET 25 MG PO (08:24)
[2023-08-16] MEDS: LISINOPRIL 10MG TABLET 10 MG PO (08:24)
[2023-08-16] MEDS: CLOPIDOGREL 75MG TAB 75 MG PO (08:24)
--- NOTE | 2023-08-16 09:13 | IR_ITS ---
APPROVED REPORT Patient Location: Outpatient [employer] Operator: MARTIR Sánchez RT (R) PROCEDURES Selective coronary angiogram INDICATION Acute non-ST elevation myocardial infarction, Known coronary artery disease Informed consent was obtained prior to the procedure. COMPLICATIONS NONE Estimated Blood Loss: LESS THAN 10 ML TECHNIQUE One percent lidocaine used to anesthetize the right anterior aspect of the wrist. The right radial artery was accessed via the Seldinger technique. A 6 [place] sheath was placed in the right radial artery. 2.5 mg of Verapamil, 800 mcg of nitroglycerin, 1mg Lidocaine and 5000 U Heparin were given through the arterial sheath. The papa catheter was also used to perform selective coronary angiogram. At the end of the diagnostic angiogram the apparatus was removed the sheath was removed and hemostasis was achieved using TR banding patient was transferred to the postoperative in stable addition ANGIOGRAPHIC RESULTS The left main artery Has a mid vessel distal hazy 20% stenosis The left anterior descending artery Has a stent in the ostial proximal segment which is widely patent free of in-stent restenosis excellent proximal distal transitioning. The remaining LAD is widely patent with mild disease The circumflex artery Is nondominant yet still large with proximal 20 and 30% stenoses and mid vessel and distal 20% stenosis. There is a stent in the distal circumflex artery which is widely patent with minimal in-stent restenosis with excellent proximal distal transitioning The right coronary artery Dominant vessel has proximal and mid vessel 20% diffuse stenoses. Distally there are 30% stenosis. There is a medium size posterior descending artery which has a proximal hazy 20 to 30% stenosis with a mid vessel concentric 70% stenosis however the vessel is 2 mm at the stenotic area The JE[facility]APTISTE ventriculogram reveals Was not performed The left ventricular end-diastolic pressure Was not measured IMPRESSION Recent non-ST elevation myocardial infarction with mildly elevated troponin levels now which likely stemming from post procedure elevation. Patient's chest pain likely also stems from stent arteritis from appropriate stenting and stretching of the ostial proximal LAD. Persistent stenosis in the posterior descending artery which is not producing patient's elevated troponin or chest pain and is best managed medically PLAN 1. Continue dual antiplatelet therapy 2. Aggressive risk factor modification 3. Long-acting might nitrates might help with the stent arteritis 4. Avoidance of tobacco products 5. LDL less than 55 to be achieved high intensity statin Electronically signed by : Daquan Barrera MD 08/16/2023 13:18:59
--- NOTE | 2023-08-16 09:27 | EXP.CARD.CON ---
History of Present Illness History of Present Illness Consult date: 08/16/23 Requesting physician: Winston Larson Consult reason: chest pain Chief complaint: Chest pain History of present illness: This is a 33-year-old white male with past medical history of coronary artery disease with stenting in 2019, hypertension, hyperlipidemia, type 1 diabetes mellitus and current smoker who presented to emergency department last night with complaints of chest pain x 2 days. Of note patient underwent left heart catheterization at [facility] on 08/10/2023 receiving 4 drug-eluting stents to ostial proximal LAD and dilation of the proximal segment. Patient reports chest pain or shortness of breath since discharge home. Upon presentation to emergency department EKG revealed sinus rhythm at a rate of 64. Labs as follow: WBC 12.3, hemoglobin 13 sodium 139, potassium 4.3, creatinine 0.8 and a troponin of 0.1 trending up to 0.13. Patient was admitted for NSTEMI and for evaluation by cardiology. This morning patient continues to have episodes of intermittent chest pain with shortness of breath. Echocardiogram is pending. [facility] Disclaimer: The information contained in this section may have been updated after the patient was seen, as this information can be updated by other users. Medical History (Updated 08/16/23 @ 09:34 by Vivian Campbell APRN) Diabetes mellitus, type 2 History of left heart catheterization (LHC) Family History (Updated 08/15/23 @ 17:52 by Tomasz Mesa RN) Other Family history of hypertension Family history of myocardial infarction Social History (Updated 08/15/23 @ 17:55 by Tomasz Mesa RN) Smoking Status: Former smoker tobacco type: cigarettes packs per day: 1 alcohol intake: never substance use type: marijuana current occupational status: employed and other Travel in the last 8 weeks: None adopted: No caregiver/support person: No foster care: No household members: spouse housing: house lives independently: Yes marital status: education level: high school service: No correction: No Review of Systems Review of Systems Review of systems:: pertinent systems reviewed and negative unless documented below Constitutional Constitutional: Reports system reviewed and no additional complaints, except as documented *Cardiovascular Cardiovascular: Reports chest pain and Reports dyspnea *Respiratory Respiratory: Reports system reviewed and no additional complaints, except as documented and Reports dyspnea *Gastrointestinal Gastrointestinal: Reports system reviewed and no additional complaints, except as documented *Neurologic Neurologic: Reports system reviewed and no additional complaints, except as documented and Denies confusion Psychiatric Psychiatric: Reports system reviewed and no additional complaints, except as documented and Denies confusion Exam Data for Last 24 hours Vital signs and Labs for Last 24 Hours: Temp Pulse Resp BP Pulse Ox O2 Del Method 98 F 63 16 134/88 99 Room Air 08/16/23 08:00 08/16/23 08:00 08/16/23 08:00 08/16/23 08:00 08/16/23 08:00 08/16/23 08:00 Laboratory Results - last 24 hr 08/15/23 15:35: WBC 12.3 H, RBC 4.30 L, Hgb 13.0 L, Hct 40.0 L, MCV 93.0, MCH 30.3, MCHC 32.6, RDW 13.6, Plt Count 317, MPV 7.6, Neut % (Auto) 58.7, Lymph % (Auto) 34.1, Morris % (Auto) 4.8, Eos % (Auto) 1.6, Baso % (Auto) 0.7, Neut # (Auto) 7.2, Lymph # (Auto) 4.2, Morris # (Auto) 0.6, Eos # (Auto) 0.2, Baso # (Auto) 0.1, Sodium 139, Potassium 4.3, Chloride 109 H, Carbon Dioxide 32 H, Anion Gap 2.3 L, BUN 17, Creatinine 0.80, Estimated Creat Clear 192, Estimated GFR 111, Est GFR ( Amer) 134, Glucose 217 H, Calcium 9.6, Total Bilirubin 0.5, AST 23, ALT 22, Alkaline Phosphatase 71, Troponin I 0.10 H, Total Protein 6.8, Albumin 3.8, Globulin 3.0, Albumin/Globulin Ratio 1.3, Lipase 116 08/15/23 19:10: Troponin I 0.11 H 08/15/23 21:39: Troponin I 0.12 H 08/15/23 22:01: POC Glucose 124 H 08/16/23 02:23: Troponin I 0.13 H 08/16/23 05:57: POC Glucose 134 H 08/16/23 06:16: WBC 11.1 H, RBC 4.26 L, Hgb 12.9 L, Hct 39.5 L, MCV 92.6, MCH 30.4, MCHC 32.8, RDW 13.6, Plt Count 300, MPV 7.5, Neut % (Auto) 52.0, Lymph % (Auto) 39.2, Morris % (Auto) 5.5, Eos % (Auto) 2.5, Baso % (Auto) 0.7, Neut # (Auto) 5.8, Lymph # (Auto) 4.4, Morris # (Auto) 0.6, Eos # (Auto) 0.3, Baso # (Auto) 0.1, Sodium 139, Potassium 3.6, Chloride 104, Carbon Dioxide 28, Anion Gap 10.6, BUN 15, Creatinine 0.80, Estimated Creat Clear 202, Estimated GFR 111, Est GFR ( Amer) 134, Glucose 136 H D, Calcium 9.2 I & O for Last 24 hours: Intake & Output 08/13/23 08/14/23 08/15/23 08/16/23 23:59 23:59 23:59 23:59 Intake Total 360 / 360 Output Total 0 / 0 0 / 0 Balance 360 / 360 0 / 0 Weight 230 lb 241 lb 9.6 oz Constitutional Constitutional: no acute distress *Routine Respiratory Exam Respiratory: Present CTA bilaterally and symmetric chest movement *Routine Cardiovascular Exam Cardiovascular: Present RRR, Normal S1 and Normal S2 *Routine Abdominal Exam Abdominal: Present soft and normoactive bowel sounds; Absent tenderness *Routine Extremities Exam Extremities: Present full ROM and normal capillary refill; Absent edema *Routine Skin Exam Skin: Present intact, dry and warm Detailed Neck Exam: Thyroids Thyroid: Absent bruit Meds Home Medications and Allergies Home Medications Medication Instructions Recorded Confirmed Type atorvastatin 80 mg tablet 80 mg PO DAILY 08/15/23 08/15/23 History clopidogrel 75 mg tablet 75 mg PO DAILY 08/15/23 08/15/23 History doxycycline monohydrate 100 mg 100 mg PO BID 08/15/23 08/15/23 History tablet insulin glargine 100 unit/mL (3 20 unit SQ AM 08/15/23 08/15/23 History mL) subcutaneous pen (Lantus Solostar U-100 Insulin) insulin glargine 100 unit/mL (3 25 unit SQ HS 08/15/23 08/15/23 History mL) subcutaneous pen (Lantus Solostar U-100 Insulin) isosorbide mononitrate 30 mg 30 mg PO DAILY 08/15/23 08/15/23 History tablet,extended release 24 hr lisinopril 10 mg tablet 10 mg PO DAILY 08/15/23 08/15/23 History metoprolol tartrate 25 mg tablet 25 mg PO BID 08/15/23 08/16/23 History nicotine 21 mg/24 hr daily 1 patch transdermal Q24H 08/15/23 08/15/23 History transdermal patch nitroglycerin 0.4 mg sublingual 0.4 mg sublingual Q5MINP PRN Chest 08/15/23 08/16/23 History tablet Pain pantoprazole 40 mg tablet,delayed 40 mg PO BID 08/15/23 08/15/23 History release aspirin 81 mg tablet,delayed 81 mg PO DAILY 08/16/23 08/16/23 History release New Prescriptions to Start Prescriptions: Allergies Allergy/AdvReac Type Severity Reaction Status Date / Time buspirone [BUSPIRONE] Allergy Unknown HEART Verified 01/03/18 18:55 PROBLEM codeine [CODEINE] Allergy Unknown I-HIVES Verified 01/03/18 18:55 fentanyl Allergy Anaphylaxis Verified 08/15/23 18:06 Assessment and Plan *Assessment and plan (1) Non-ST elevation AL (NSTEMI): Status: Acute Category: Medical Code(s): I21.4 - Non-ST elevation (NSTEMI) myocardial infarction (2) Uncontrolled diabetes mellitus: Status: Acute Category: Medical Code(s): E11.65 - Type 2 diabetes mellitus with hyperglycemia (3) Coronary artery disease: Status: Acute Category: Medical Code(s): I25.10 - Atherosclerotic heart disease of [place] coronary artery without angina pectoris Plan Coronary artery disease NSTEMI Troponin 0.1 trending up to 0.13 EKG negative for acute ischemic changes Patient underwent successful stenting of ostial proximal LAD with 4 drug-eluting stents at [facility] on 08/09 Patient continues to have chest pressure and shortness of breath worse with activity present at rest Patient will be taken back to [facility] today for further evaluation of coronary artery disease. Discussed risk versus benefits with patient he is agreeable to proceed Continue atorvastatin 80 mg daily, Plavix 75 mg daily, isosorbide mononitrate 30 mg daily, metoprolol tartrate 25 mg daily, aspirin 81 mg daily and lisinopril 10 mg daily Echocardiogram is pending, prelim report shows a normal EF Type 1 diabetes mellitus Poorly controlled, will defer treatment to primary service Will consider addition of Ozempic prior to discharge CV summary 08/16/2023: We will proceed with left heart catheterization for NSTEMI. Echocardiogram is pending.
[2023-08-16] MEDS: MORPHINE 2MG/ML SYRINGE 2 MG IV (10:59)
[2023-08-16] MEDS: ASPIRIN EC 81MG TABLET 81 MG PO (10:59)
[2023-08-16 11:05] LABS: Hemoglobin A1C 7.4 % (4.0-6.0)
[2023-08-16 12:31] LABS: POC Glucose,Bedside 139 (70-110)
--- NOTE | 2023-08-16 12:35 | PC.NURSE ---
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
[2023-08-16] MEDS: diphenhydrAMINE 50MG/ML VIAL 50 MG IV (13:07)
[2023-08-16] MEDS: HEPARIN 1,000 UNITS/500ML NS (CATH LAB) 3000 UNIT IV (13:07)
[2023-08-16] MEDS: LIDOCAINE 1% 10ML MDV 20 ML IJ (13:08)
[2023-08-16] MEDS: NITROGLYCERIN 800MCG/8ML SYR (CATH LAB) 800 MCG IA (13:08)
[2023-08-16] MEDS: 0.9 % SODIUM CHLORIDE 500 ML 25 ML IV (13:08)
[2023-08-16] MEDS: HEPARIN 1,000 UNITS/ML 10ML VIAL (CATH LAB) 10000 UNIT IV (13:08)
[2023-08-16] MEDS: VERAPAMIL 2.5MG/ML 2ML VIAL 2.5 MG IV (13:08)
[2023-08-16] MEDS: MIDAZOLAM HCL 1MG/1ML 5ML VIAL 1 MG IV (13:19)
[2023-08-16] MEDS: PROMETHAZINE HCL 25MG/ML 1ML VIAL 25 MG IV (13:20)
[2023-08-16] MEDS: IOPAMIDOL-370 (76%);100ML BOTTLE 60 ML IV (14:22)
--- NOTE | 2023-08-16 17:16 | CA_ITS ---
APPROVED REPORT EXAM: Comprehensive 2D, Doppler, and color-flow Echocardiogram Tenderizer Tender: SANDRINE Scott, RVS Ht: 6 ft 2 in Wt: 241lbs BSA: 2.35 BP: 156/96 mmHg Indications: TDS:patient hyperventillating due to chest pain, CAD stent 2018, stent 08/11/2023 2D Dimensions Left Atrium 3.89 cm M: 3.0 - 4.0 LA Volume 93.70 mL LA Volume Index 39.871030 mL/m2 (M/F) 16-34 M-Mode Dimensions RVDd 3.22 cm (0.9-2.6) LA Diam 4.12 cm (1.9-4.0) LVDd 6.15 cm (3.5-5.7) LVDs 4.35 cm (3.5-5.7) IVSd 0.76 cm (0.6-1.1) PWd 0.92 cm (0.6-1.1) EF (Teich) 54.30% EPSs 1.13 cm FS 28.70% EDV (Teich) 186.90 mL TAPSE 2.33 (<1.7) ESV (Teich) 85.40 mL LV Diastology E Decel Time 167 (160-240 msec) E/A Ratio 2.18 MED A' 10.40 cm/s LAT A' 8.80 cm/s Aortic Valve KIRILL Index 1.05 cm2/m2 AoV Peak Jony. 131.0 (50-130 cm/s) AO Peak GR. 6.90 mmHg AO Mean GR. 3.40 (<5 mmHg) AO VTI 30.3 (18-25 cm) KIRILL (VTI) 2.53 (2.5-4.5 cm2) Mitral Valve MV A Velocity 52.0 (40-130 cm/s) E/A Ratio 2.18 Pulmonary Valve PV Peak Velocity 132.0 (50-150 cm/s) Tricuspid Valve TR P. Velocity 265.00 cm/s RAP Estimate 10.00 mmHg RVSP 38.00 mmHg Left Ventricle The left ventricle is normal size. The left ventricular systolic function is normal. The left ventricular ejection fraction is within the normal range. There is normal left ventricular wall thickness. There is normal LV segmental wall motion. The left ventricular diastolic function is normal. LVEF is 55%. Right Ventricle The right ventricle is normal size. The right ventricular systolic function is normal. Atria The left atrium is mildly dilated. The right atrium size is normal. There is no Doppler evidence of interatrial shunt. Aortic Valve The aortic valve opens well. There is no aortic valvular stenosis. Trace aortic regurgitation. Mitral Valve The mitral valve is normal in structure. No evidence of mitral valve stenosis. Trace mitral regurgitation. Tricuspid Valve The tricuspid valve leaflets are thin and pliable. Mild tricuspid regurgitation. RVSP is 20-25 mmHg. Pulmonic Valve The pulmonary valve is normal in structure. Trace pulmonic regurgitation. Great Vessels The aortic root is normal in size. The ascending aorta is not well-visualized. IVC is normal in size and collapses >50% with inspiration. Pericardium There is no pericardial effusion. Other Information Study Quality: Fair Conclusion Normal biventricular systolic function. Mild LA dilation. Mild TR. Electronically signed by : Nisa Canales MD 08/16/2023 12:34:17
--- NOTE | 2023-08-16 17:40 | PC.NURSE ---
pt ref remaining post cath v/s.
--- NOTE | 2023-08-18 15:14 | CARE MANAGER ---
Patient states he is doing well. Contacted him related to hospital discharge. He is aware of follow up appointments and denies any questions. ALFREDO Li
== END 2023-08-16 17:27 | disposition home or self-care (01) ==
LOC: ER 16:54 → 2ND 17:17
PROVIDERS: Internal Medicine; Internal Medicine Adolescent Medicine; Physician Assistant; Admitting Provider Internal Medicine; Emergency Provider Student in an Organized Health Care Education/Training Program; PCP Family Medicine; Visit Provider Internal Medicine
DX: I21.4 Non-ST elevation (NSTEMI) myocardial infarction (principal); E11.65 Type 2 diabetes mellitus with hyperglycemia; I25.10 Atherosclerotic heart disease of native coronary artery without angina pectoris; F17.210 Nicotine dependence, cigarettes, uncomplicated; Z79.4 Long term (current) use of insulin; Z79.899 Other long term (current) drug therapy
CPT/HCPCS: 36415; 71045; 80048; 80053; 82962; 83036; 83690; 84484; 85025; 93005; 93306; 93454; 99152; 99291; C1725; C1769; G0378; J1644; Q9967

== ENCOUNTER 2023-08-24 13:55 | Outpatient (RCR) | payer MEDICARE, SELFPAY | END 2023-09-19 15:00 | disposition home or self-care (01) | LOC: PT 13:55 | PROVIDERS: Visit Provider Internal Medicine | DX: I25.10 Atherosclerotic heart disease of native coronary artery without angina pectoris (principal); Z95.5 Presence of coronary angioplasty implant and graft | CPT/HCPCS: 93798 ==

== ENCOUNTER 2024-01-21 01:19 | Observation (INO) | payer MEDICARE, BC, SELFPAY ==
[2024-01-21] VITALS (21 sets, daily range): BP systolic 130–167; BP diastolic 68–99; PULSE 54–85; RESP 11–22; TEMP 36.7; O2SAT 96–100; BMI 29.9; BMI 29.1
--- NOTE | 2024-01-21 01:17 | ECG_ITS ---
APPROVED REPORT Exam: Resting ECG HR:57 bpm ECG Measurements Heart Rate 57 AXES SC 125 P 32 QRSd 108 QRS 66 QT 421 T 16 QTc 416 Conclusion SINUS BRADYCARDIA BORDERLINE ECG No STEMI Electronically signed by : WALDO VANG, 01/21/2024 07:14:31
--- NOTE | 2024-01-21 01:19 | XR_ITS ---
PROCEDURE INFORMATION: Exam: XR Chest Exam date and time: 01/21/2024 1:20 AM Age: 33 years old Clinical indication: Pain; Chest pressure; Additional info: Cp radiating L arm TECHNIQUE: Imaging protocol: Radiologic exam of the chest. Views: 2 views. COMPARISON: CR XR CHEST PORTABLE 08/15/2023 3:43 PM FINDINGS: Lungs: Unremarkable. No consolidation. Pleural spaces: Unremarkable. No pleural effusion. No pneumothorax. Heart/Mediastinum: Unremarkable. No cardiomegaly. Bones/joints: Unremarkable. IMPRESSION: No acute findings.
[2024-01-21] MEDS: NITROGLYCERIN 0.4MG SL TABLET 0.4 MG SL (01:21)
[2024-01-21] MEDS: ASPIRIN 81MG CHEWABLE TABLET 162 MG PO (01:22)
--- NOTE | 2024-01-21 01:22 | ED_ITS ---
Discharge Plan Disposition Patient Disposition: Admitted Condition: Fair Prescriptions Prescriptions: No Action nicotine 21 mg/24 hr patch 24 hour 1 patch transdermal DAILY Qty: 14 1RF atorvastatin 80 mg tablet 80 mg PO DAILY isosorbide mononitrate 30 mg tablet extended release 24 hr 30 mg PO DAILY clopidogrel 75 mg tablet 75 mg PO DAILY doxycycline monohydrate 100 mg tablet 100 mg PO BID pantoprazole 40 mg tablet,delayed release (DR/EC) 40 mg PO BID lisinopril 10 mg tablet 10 mg PO DAILY nitroglycerin 0.4 mg tablet, sublingual 0.4 mg sublingual Q5MINP PRN (Reason: Chest Pain) metoprolol tartrate 25 mg tablet 25 mg PO BID insulin glargine [Lantus Solostar U-100 Insulin] 100 unit/mL (3 mL) insulin pen 20 unit SQ AM insulin glargine [Lantus Solostar U-100 Insulin] 100 unit/mL (3 mL) insulin pen 25 unit SQ HS aspirin 81 mg Tablet,Delayed Release (Dr/Ec) 81 mg PO DAILY nicotine 21 mg/24 hr Patch 24 Hour 21 mg transdermal DAILYP PRN (Reason: Nicotine Cravings) 28 Days Qty: 28 0RF Referrals Follow up/Referrals: Provider,Referral, [Primary Care Provider] - See instructions Clinical Impressions Clinical Impression: Unstable angina Print Language Print Language: Italian Discharge ED Provider: Phoebe Sykes General Chief Complaint: Chest Pain Stated Complaint: chest pain Time Seen by Provider: 01/21/24 01:20 Mode of Arrival: EMS History of Present Illness HPI narrative: 33-year-old male with history of NSTEMI in August with multiple drug-eluting stents presents to the ER with complaints of left-sided chest pain radiating to left arm. Patient states his quality of pain is similar to when he had NSTEMI a few months ago, however it is not as intense. He states the radiation of the left arm is also similar to when he had NSTEMI. Patient reports he takes blood pressure and blood thinning medications and has not missed any doses. He takes his medications in the morning. Patient was working at [employer] when around 10 PM he developed his symptoms. He states his blood pressure there was in the 190s. EMS was called, per EMS report he received 162 mg aspirin per their protocol, as well as 2 sublingual nitroglycerin. Patient states his chest pain has improved some but he has developed headache since receiving nitro. Patient reports mild lightheadedness, no nausea, vomiting, abdominal pain. He reports worse pain with deep inspiration. He denies any swelling in the feet or legs. Patient states he is sweaty but has not had fevers, chills. He states everyone at [facility] has COVID currently and he is worried about that. ROS otherwise negative Related Data Home Medications ?Medication ?Instructions ?Recorded ?Confirmed atorvastatin 80 mg tablet 80 mg PO DAILY 08/15/23 08/23/23 clopidogrel 75 mg tablet 75 mg PO DAILY 08/15/23 08/23/23 doxycycline monohydrate 100 mg 100 mg PO BID 08/15/23 08/23/23 tablet insulin glargine 100 unit/mL (3 20 unit SQ AM 08/15/23 08/23/23 mL) subcutaneous pen (Lantus Solostar U-100 Insulin) insulin glargine 100 unit/mL (3 25 unit SQ HS 08/15/23 08/23/23 mL) subcutaneous pen (Lantus Solostar U-100 Insulin) isosorbide mononitrate 30 mg 30 mg PO DAILY 08/15/23 08/23/23 tablet,extended release 24 hr lisinopril 10 mg tablet 10 mg PO DAILY 08/15/23 08/23/23 metoprolol tartrate 25 mg tablet 25 mg PO BID 08/15/23 08/23/23 nitroglycerin 0.4 mg sublingual 0.4 mg sublingual Q5MINP PRN Chest 08/15/23 08/23/23 tablet Pain pantoprazole 40 mg tablet,delayed 40 mg PO BID 08/15/23 08/23/23 release aspirin 81 mg tablet,delayed 81 mg PO DAILY 08/16/23 08/23/23 release Previous Rx's ?Medication ?Instructions ?Recorded nicotine 21 mg/24 hr daily 21 mg transdermal DAILYP PRN 08/16/23 transdermal patch Nicotine Cravings 28 days #28 ea nicotine 21 mg/24 hr daily 1 patch transdermal DAILY #14 ea 08/23/23 transdermal patch Allergies Allergy/AdvReac Type Severity Reaction Status Date / Time buspirone [BUSPIRONE] Allergy Unknown HEART Verified 08/23/23 11:06 PROBLEM codeine [CODEINE] Allergy Unknown I-HIVES Verified 08/23/23 11:06 fentanyl Allergy Anaphylaxis Verified 08/23/23 11:06 [facility] Disclaimer: The information contained in this section may have been updated after the patient was seen, as this information can be updated by other users. Medical History (Updated 01/21/24 @ 02:47 by Phoebe Sykes MD) Alcohol intoxication delirium Syncope due to orthostatic hypotension Tetrahydrocannabinol (THC) use disorder, mild, abuse Diabetes mellitus, type 2 History of left heart catheterization (LHC) Family History (Updated 08/15/23 @ 17:52 by Tomasz Mesa, RN) Other Family history of hypertension Family history of myocardial infarction Social History (Updated 08/15/23 @ 17:55 by Tomasz Mesa RN) Smoking Status: Current every day smoker tobacco type: cigarettes packs per day: 1 alcohol intake: never substance use type: marijuana current occupational status: employed and other Travel in the last 8 weeks: None adopted: No caregiver/support person: No foster care: No household members: spouse housing: house lives independently: Yes marital status: education level: high school service: No assisted: No Other Medical History Have you received the Flu Vaccine for this season: No Have you received the Pneumonia Vaccine: No ROS Obtained: Yes All systems reviewed & no additional complaints except as documented Positive ROS per HPI Physical Exam General General appearance: alert and in no apparent distress Head Head exam: atraumatic and normocephalic Eye Eye exam: Present PERRL and EOMI ENT ENT exam: Present mucous membranes moist Neck Neck exam: Present normal inspection and full ROM Chest Chest inspection: Present symmetric chest wall rise Respiratory Respiratory exam: Present normal lung sounds bilaterally; Absent respiratory distress, wheezes or stridor Cardiovascular Cardiovascular exam: Present normal rhythm and bradycardia (Mildly bradycardic with heart rate in the mid-upper 50s) Abdominal Exam Abdominal exam: Present soft; Absent distention, tenderness, guarding or rebound Extremities Exam Extremities exam: Present full ROM, edema (1+, mild bilaterally) and other (2+ pulses in all extremities) Neurological Exam Neurological exam: Present alert and oriented X3; Absent motor sensory deficit Psychiatric Psychiatric exam: Present normal affect and normal mood Skin Skin exam: Present warm and dry HEART Score HEART Score HEART Score assessment performed?: Yes History (anamnesis): Moderately suspicious ECG: Normal Age: <45 years Risk factors: Atherosclerosis history Troponin: </= normal limit HEART Score: 3 Critical Care Critical Care Time Critical Care Time: No Medical Decision Making Medical Records Medical records reviewed: Yes I reviewed the patient's medical records. MR Comment: Most recent cardiology note from August 23, [address] Barrera demonstrates that at that time patient had had recent NSTEMI, 4 drug-eluting stents, chest pain at that time was believed to be from stent arteritis and stretching of the ostial proximal LAD, patient also had persistent stent stenosis in the posterior descending artery likely not producing patient's elevated troponin no chest pain, at that time plan was to continue dual antiplatelet therapy, risk factor modification, and consideration of long-acting nitrate. Patient is currently on isosorbide mononitrate. Cristobal Inquiry Pt receiving controlled substance: No Vital Signs Vital Signs: 01/21/24 01:19 Temperature 98.1 F Temperature Source Oral Pulse Rate [Apical] 57 L Respiratory Rate 14 Blood Pressure [Right Arm] 167/84 H Blood Pressure Mean [Right Arm] 111 Blood Pressure Source [Right Arm] Automatic Cuff Blood Pressure Position [Right Arm] Sitting 02 Sat by Pulse Oximetry 99 Oxygen Delivery Method Room Air Lab Data Labs: Lab Results 01/21/24 01:16: WBC 14.1 H, RBC 4.73, Hgb 14.5, Hct 41.0 L, MCV 86.8, MCH 30.6, MCHC 35.3, RDW 13.3, Plt Count 330, MPV 7.1 L, Neut % (Auto) 54.3, Lymph % (Auto) 37.2, [place] % (Auto) 5.6, Eos % (Auto) 2.1, Baso % (Auto) 0.8, Neut # (Auto) 7.6, Lymph # (Auto) 5.2 H, Sweet [place] # (Auto) 0.8, Eos # (Auto) 0.3, Baso # (Auto) 0.1, PT 10.7, INR 0.95, APTT 26.9, D-Dimer < 0.25, Sodium 141, Potassium 2.0 L*, Chloride 127 H, Carbon Dioxide 17 L, Anion Gap -1.0 L, BUN 14, C reatinine 0.40 L, Estimated Creat Clear 401 H, Estimated GFR 246, Est GFR ( Amer) 298, Glucose 108 H, Calcium 4.9 L*, Total Bilirubin 0.3, AST 20, ALT 20, Alkaline Phosphatase 35 L, Troponin I < 0.01, NT-Pro-B Natriuret Pep 37.7, Total Protein 3.7 L D, Albumin 1.7 L, Globulin 2.0, Albumin/Globulin Ratio 0.9 L 01/21/24 01:29: Sodium 135 L, Potassium 3.8 D, Chloride 109 H, Carbon Dioxide 26, Anion Gap 3.8 L, BUN 24 H D, Creatinine 0.70 D, Estimated Creat Clear 229, Estimated GFR 129, Est GFR ( Amer) 156 D, Glucose 173 H D, Calcium 9.3, Magnesium 1.7 01/21/24 01:40: SARS-CoV-2 (PCR) Not detected, Influenza A Untype (PCR) Not detected, Influenza Type B (PCR) Not detected 01/21/24 01:16 01/21/24 01:29 Response Orders (Tests/Meds): ED MEDICATIONS Generic Name Dose Route Start Last Admin Trade Name Freq PRN Reason Stop Dose Admin Nitroglycerin/Dextrose 250 mls @ 1.5 mls/hr 01/21/24 02:30 Nitroglycerin 50mg/250ml D5w IV 02/20/24 02:29 .Q24H FRANCISCA Protocol 5 MCG/MIN Nitroglycerin 0.4 mg 01/21/24 01:18 01/21/24 01:21 Nitroglycerin 0.4mg Sl Tablet SL 01/22/24 01:19 0.4 mg Q5MINP PRN Administration Chest Pain Discontinued Medications Generic Name Dose Route Start Last Admin Trade Name Freq PRN Reason Stop Dose Admin Acetaminophen 1,000 mg 01/21/24 02:03 01/21/24 02:12 Acetaminophen 500mg Tab PO 01/21/24 02:04 1,000 mg ONCE ONE Administration Aspirin 162 mg 01/21/24 01:18 01/21/24 01:22 Aspirin 81mg Chewable Tablet PO 01/21/24 01:19 162 mg ONCE ONE Administration ORDERS Category Date Time Status XR chest 2V Stat Exams 01/21/24 01:19 Taken Activated Partial Thrombo Time Stat Lab 01/21/24 01:16 Completed BMP [Basic Metabolic Panel] Stat Lab 01/21/24 01:29 Completed Complete Blood Count Auto Diff Stat Lab 01/21/24 01:16 Completed Comprehensive Metabolic Panel Stat Lab 01/21/24 01:16 Completed D-Dimer Stat Lab 01/21/24 01:16 Completed HIV (1&2) Antibody Rapid Stat Lab 01/21/24 01:18 Received Hep C Ab with Reflex to RNA Stat Lab 01/21/24 01:18 Received Magnesium Stat Lab 01/21/24 01:29 Completed NT Pro Brain Natriuretic Pep. Stat Lab 01/21/24 01:16 Completed Prothrombin Time INR Stat Lab 01/21/24 01:16 Completed Rapid PCR Covid and Flu A/B Stat Lab 01/21/24 01:40 Completed Troponin I Q3H Lab 01/21/24 01:16 Completed Troponin I Q3H Lab 01/21/24 04:30 Ordered Troponin I Q3H Lab 01/21/24 07:30 Ordered MDM Narrative Medical Decision Narrative: In summary, this 33-year-old male with comorbidities including previous NSTEMI on dual antiplatelet therapy, hypertension, diabetes, all of which increase his overall morbidity and the amount of data to be reviewed presents to the emergency department today with chest pain radiating to the left arm starting 3 and half hours prior to arrival. On initial evaluation patient is slightly bradycardic and hypertensive, GCS 15, he reports feeling sweaty but is not diaphoretic to the touch, +1 pitting edema bilateral lower extremities, 2+ pulses throughout, benign abdominal exam, lungs clear bilaterally, aside from bradycardia no abnormalities on cardiac exam. Differential diagnosis includes but is not limited to STEMI, NSTEMI, PE, electrolyte abnormality, arrhythmia, hypertensive urgency/emergency, medication noncompliance, viral syndrome, esophageal spasm. Based on these concerns, I ordered serum labs, cardiac workup, chest x-ray. ECG personally interpreted demonstrates sinus bradycardia, rate 57, normal axis, normal NC and QTc, no STEMI, ECG similar to his ECG in August which I reviewed. Patient received additional 162 mg chewable aspirin as well as sublingual nitro for treatment. Labs personally reviewed demonstrate mild leukocytosis with lymphocytosis, no anemia, platelets normal at 330, PT/INR and APTT normal, lab called with critical results of significant hypokalemia, hyperchloremia, profound hypocalcemia. Prior to addressing these issues repeat BMP was sent to ensure accuracy since this does not clinically correlate and could be the result of saline flush contamination insufficient waste prior to lab draw. Repeat BMP is reassuring, sodium 135, potassium 3.8, chloride 109, calcium normal at 9.3. Patient does have mild prerenal azotemia, he is tolerating oral intake so he is actively drinking water at this time. COVID, flu negative XR personally interpreted demonstrates no acute intrathoracic abnormality, see radiology read for final interpretation. Patient states he still has headache. Acetaminophen administered. He also states that despite receiving nitro again in the ER, he continues having dull throbbing chest pain radiating to the left arm. Given his cardiac history, I have higher concern for NSTEMI versus unstable angina. I contacted Dr. Barrera and had an interactive discussion with him. He recommends nitro drip and admission for continued management. Nitro drip has been ordered. Patient amenable to the plan for admission. I discussed this case with the hospitalist who accepted the patient for admission. Patient admitted in stable condition
[2024-01-21 01:31] LABS: Basophils # 0.1 K/mm3 (0-0.2); Basophils % 0.8 % (0.1-2.0); Eosinophils # 0.3 K/mm3 (0.0-0.4); Eosinophils % 2.1 % (0.1-12.0); Hemoglobin 14.5 g/dL (14.1-18.0); Lymphocytes # 5.2 K/mm3 (0.7-4.5); Lymphocytes % 37.2 % (10-50); Mean Corpuscular HGB Conc 35.3 g/dL (31.8-35.4); Mean Corpuscular Hemoglobin 30.6 pg (27.0-31.2); Mean Corpuscular Volume 86.8 fl (80-94); Mean Platelet Volume 7.1 fl (7.4-10.4); Monocytes # 0.8 K/mm3 (0.1-1.0); Monocytes % 5.6 % (1.7-9.3); Neutrophils # 7.6 K/mm3 (1.8-7.8); Neutrophils % 54.3 % (37.0-80.0); Platelet Count 330 K/mm3 (142-424); Red Blood Count 4.73 M/mm3 (4.60-6.20); Red Cell Distribution Width 13.3 % (11.5-17.5); White Blood Count 14.1 K/mm3 (4.8-10.8)
[2024-01-21 01:36] LABS: Activated Partial Thrombo Time 26.9 seconds (22.8-30.6); Alanine Aminotransferase 20 U/L (12-78); Albumin Level 1.7 g/dl (3.5-5.0); Albumin/Globulin Ratio 0.9 (1.1-1.8); Alkaline Phosphatase 35 U/L (38-126); Aspartate Amino Transferase 20 U/L (17-59); Bilirubin,Total 0.3 mg/dl (0.2-1.3); Blood Urea Nitrogen 14 mg/dl (9-20); Carbon Dioxide 17 mmol/L (22.0-30.0); Estimated Glomerular Filt Rate 246 ml/min (>60); GFR (African American) 298 ML/MIN (>60); Glucose 108 mg/dl (74-100); INR 0.95 (0.9-1.1); Prothrombin Time 10.7 seconds (10.1-12.5); Sodium 141 mmol/L (136-145); Total Protein,Serum 3.7 g/dl (6.3-8.2)
[2024-01-21 01:40] LABS: D-Dimer < 0.25 ug/mL (0.0-0.5)
[2024-01-21 01:41] LABS: Chloride 127 mmol/L (98-107); Creatinine Clearance Estimated 401 mL/min (50-200)
[2024-01-21 01:43] LABS: Calcium 4.9 mg/dl (8.4-10.2)
--- NOTE | 2024-01-21 01:45 | PC.NURSE ---
MD Sykes notified of critical lab values. see notify/transport. Sykes re-ordering BMP for redraw. B Joya RN at bedside re-drawing labs at this time.
[2024-01-21 01:48] LABS: Coronavirus 19, PCR Not Detected (NotDetected); Influenza A, PCR Not Detected (NotDetected); Influenza B, PCR Not Detected (NotDetected)
[2024-01-21 01:49] LABS: NT Pro Brain Natriuretic Pep. 37.7 pg/mL (0-125)
[2024-01-21 01:51] LABS: Troponin I < 0.01 ng/ml (0.00-0.034)
[2024-01-21 02:05] LABS: Anion Gap 3.8 mEq/L (5-15); Blood Urea Nitrogen 24 mg/dl (9-20); Calcium 9.3 mg/dl (8.4-10.2); Carbon Dioxide 26 mmol/L (22.0-30.0); Chloride 109 mmol/L (98-107); Creatinine Clearance Estimated 229 mL/min (50-200); Estimated Glomerular Filt Rate 129 ml/min (>60); GFR (African American) 156 ML/MIN (>60); Glucose 173 mg/dl (74-100); Potassium 3.8 mmoL/L (3.5-5.1); Sodium 135 mmol/L (136-145)
[2024-01-21 02:06] LABS: Magnesium 1.7 mg/dl (1.6-2.3)
[2024-01-21] MEDS: ACETAMINOPHEN 500MG TAB 1000 MG PO (02:12)
[2024-01-21] MEDS: NITROGLYCERIN IN 5 % DEXTROSE 250 ML 1.5 MG IV (03:06)
--- NOTE | 2024-01-21 03:11 | P.HP_ITS ---
History of Present Illness *Admission Date: 01/21/24 *Reason for visit:: Chest pain nonresolving *History of present illness: This 33-year-old male who works at [employer] began to have chest pain tonight.. He was transported to the emergency room by ambulance. He gives a history of having a STEMI in August of this year with stents placed by Dr. Barrera. Patient has noted that at work he has several team members with COVID. And he is an insulin-dependent diabetic. That he has been taking doxycycline for quite some time for a diabetic ulcer to the great toe.. He has significant neuropathy to both feet. Also noting that he continues to smoke. And that he has extremely terrible teeth rotted down to the gums. And so far in the ER he has not received much relief from the chest pain.. He describes it as a 7 out of 10, left of center line at the lower rib cage. He noted that in a different position from when he had his STEMI chest pain. He denies any recent injuries falls or anything else that would cause musculoskeletal pain. I have discussed the patient with the emergency room physician and agree that needs to be admitted will put on a nitroglycerin drip to try to control this chest pain. Dr. Barrera has been contacted by phone. Labs indicate an increased white count. Patient also noted he felt like he had a fever. [facility] Disclaimer: The information contained in this section may have been updated after the patient was seen, as this information can be updated by other users. Medical History Alcohol intoxication delirium Syncope due to orthostatic hypotension Tetrahydrocannabinol (THC) use disorder, mild, abuse Diabetes mellitus, type 2 History of left heart catheterization (LHC) Surgical History Status post insertion of drug-eluting stent into right coronary artery for coronary artery disease Family History Other Family history of hypertension Family history of myocardial infarction Social History (Updated 01/21/24 @ 05:58 by Mary Frazier RN) Smoking Status: Current every day smoker tobacco type: cigarettes packs per day: 1 alcohol intake: never substance use type: marijuana current occupational status: employed and other Travel in the last 8 weeks: None adopted: No caregiver/support person: No foster care: No household members: spouse housing: house lives independently: Yes marital status: education level: high school service: No jail: No Other Medical History Have you received the Flu Vaccine for this season: No Have you received the Pneumonia Vaccine: No Review of Systems Review of Systems Review of systems:: pertinent systems reviewed and negative unless documented below Review of systems (narrative): Patient is alert oriented on the stretcher in the emergency room with significant other in the room at bedside Constitutional Constitutional: Reports system reviewed and no additional complaints, except as documented and Reports as per HPI Eyes Eyes: Reports system reviewed and no additional complaints, except as documented ENT Ears, Nose, Mouth, and Throat: Reports system reviewed and no additional complaints, except as documented Comments: Patient noted that he has terrible teeth that are very badly decayed. *Cardiovascular Cardiovascular: Reports as per HPI, Reports chest pain, Reports chest pain at rest, Reports chest pain with activity and Reports slow heart rate Comments: Patient denies shortness of breath with his chest pain *Respiratory Respiratory: Reports as per HPI Comments: Patient denies any respiratory problems able to take a deep breath that does not increase into chest pain *Gastrointestinal Gastrointestinal: Reports as per HPI Comments: Patient noted his terrible heartburn, that he has to have medication to control it *Genitourinary Genitourinary: Reports as per HPI *Musculoskeletal Musculoskeletal: Reports as per HPI Comments: Patient denies any recent injuries or changes to any of his muscles or limbs Integumentary/Breasts Skin/Breast: Reports as per HPI and Reports lesions Comments: Patient noted that he is seeing a security patrol officer for a diabetic ulcer to great toe that has been healing been on doxycycline for an extended period of time using Betadine with dressings *Neurologic Comments: Patient noted that he has significant decrease in feeling to both lower extremities Psychiatric Psychiatric: Reports system reviewed and no additional complaints, except as documented Endocrine Endocrine: Reports as per HPI Hematologic/Lymphatic Hematologic/Lymphatic: Reports as per HPI Allergic/Immunologic Allergic/Immunologic: Reports as per HPI Meds Home Medications and Allergies Home Medications ?Medication ?Instructions ?Recorded ?Confirmed ?Type atorvastatin 80 mg tablet 80 mg PO DAILY 08/15/23 01/21/24 History clopidogrel 75 mg tablet 75 mg PO DAILY 08/15/23 01/21/24 History doxycycline monohydrate 100 mg 100 mg PO BID 08/15/23 01/21/24 History tablet lisinopril 10 mg tablet 10 mg PO DAILY 08/15/23 01/21/24 History metoprolol tartrate 25 mg tablet 25 mg PO BID 08/15/23 01/21/24 History pantoprazole 40 mg tablet,delayed 40 mg PO BID 08/15/23 01/21/24 History release aspirin 81 mg tablet,delayed 81 mg PO DAILY 08/16/23 01/21/24 History release insulin glargine 100 unit/mL (3 14 unit (0.14 mL) SQ BID 30 days 01/21/24 01/21/24 Rx mL) subcutaneous pen (Lantus #0 mL Solostar U-100 Insulin) isosorbide mononitrate 60 mg 60 mg PO DAILY 30 days #30 tabs 01/21/24 Rx tablet,extended release 24 hr New Prescriptions to Start Prescriptions: isosorbide mononitrate Matt Jensen Allergies Allergy/AdvReac Type Severity Reaction Status Date / Time buspirone [BUSPIRONE] Allergy Unknown HEART Verified 08/23/23 11:06 PROBLEM codeine [CODEINE] Allergy Unknown I-HIVES Verified 08/23/23 11:06 fentanyl Allergy Anaphylaxis Verified 08/23/23 11:06 Exam Data for Last 24 hours Vital signs and Labs for Last 24 Hours: Temp Pulse Resp BP Pulse Ox O2 Del Method 98.1 F 57 L 14 167/84 H 99 Room Air 01/21/24 01:19 01/21/24 01:19 01/21/24 01:19 01/21/24 01:19 01/21/24 01:19 01/21/24 01:19 Laboratory Results - last 24 hr 01/21/24 01:16: WBC 14.1 H, RBC 4.73, Hgb 14.5, Hct 41.0 L, MCV 86.8, MCH 30.6, MCHC 35.3, RDW 13.3, Plt Count 330, MPV 7.1 L, Neut % (Auto) 54.3, Lymph % (Auto) 37.2, [place] % (Auto) 5.6, Eos % (Auto) 2.1, Baso % (Auto) 0.8, Neut # (Auto) 7.6, Lymph # (Auto) 5.2 H, [place] # (Auto) 0.8, Eos # (Auto) 0.3, Baso # (Auto) 0.1, PT 10.7, INR 0.95, APTT 26.9, D-Dimer < 0.25, Sodium 141, Potassium 2.0 L*, Chloride 127 H, Carbon Dioxide 17 L, Anion Gap -1.0 L, BUN 14, Creatinine 0.40 L, Estimated Creat Clear 401 H, Estimated GFR 246, Est GFR ( Amer) 298, Glucose 108 H, Calcium 4.9 L*, Total Bilirubin 0.3, AST 20, ALT 20, Alkaline Phosphatase 35 L, Troponin I < 0.01, NT-Pro-B Natriuret Pep 37.7, Total Protein 3.7 L D, Albumin 1.7 L, Globulin 2.0, Albumin/Globulin Ratio 0.9 L 01/21/24 01:29: Sodium 135 L, Potassium 3.8 D, Chloride 109 H, Carbon Dioxide 26, Anion Gap 3.8 L, BUN 24 H D, Creatinine 0.70 D, Estimated Creat Clear 229, Estimated GFR 129, Est GFR ( Amer) 156 D, Glucose 173 H D, Calcium 9.3, Magnesium 1.7 01/21/24 01:40: SARS-CoV-2 (PCR) Not detected, Influenza A Untype (PCR) Not detected, Influenza Type B (PCR) Not detected I & O for Last 24 hours: Intake & Output 01/18/24 01/19/24 01/20/24 01/21/24 23:59 23:59 23:59 23:59 Weight 108.862 kg Radiology Reports for the Last 24 Hours: Reviewed chest x-ray no acute findings Constitutional Constitutional: mild distress and thin *Routine HEENT Exam Head: Present normocephalic and atraumatic Eye: Present EOMI and PERRL ENT: Present mucous membranes moist and other (Significant dental decay) Comments: His teeth are black and rotted down to the gum line or below *Routine Neck Exam Neck: Present supple and full ROM Routine Chest/Breast/Axilla Exam Comments: Examined chest and upper abdomen there was no pain upon palpation no signs of musculoskeletal injury *Routine Respiratory Exam Respiratory: Present CTA bilaterally, normal respiratory effort, able to speak i n complete sentences and symmetric chest movement Comments: Patient is able to talk well he is showing no signs of respiratory difficulty chest wall expands equally on both sides, no signs of chest wall pain *Routine Cardiovascular Exam Cardiovascular: Present RRR, Normal S1, Normal S2 and bradycardia *Routine Abdominal Exam Abdominal: Present soft and normoactive bowel sounds Comments: No tenderness noted *Routine Rectal Exam Rectal:: deferred *Routine Genitalia Exam Genitalia:: deferred *Routine Extremities Exam Extremities: Present full ROM and pulses intact Comments: Significant decrease in sensation to both lower extremities dressing to great toe. Examination of the right great toe shows a small scabbed area. There is no drainage there is no significant inflammation no signs of abscess. Patient has no foot pain, but does not really start to have sensation until near the heel and up the ankle. Routine Back/Spine/Pelvis Exam Back/Spine: Present full ROM and CVA tenderness Comments: Patient is able to walk move without any difficulty no signs of back pain *Routine Skin Exam Skin: Present lesions Comments: Great toe there was a dressing on it did not take that down in the emergency room will do that on the floor at the nurses use Betadine and redress it as needed, *Routine Neurological Exam Neurological: Present alert, oriented X3, CN II-XII intact, vision grossly intact and hearing grossly intact Comments: Significant decrease in sensation to both lower extremities related to diabetes Routine Psychiatric Exam Psychiatric: Present normal affect, normal thought process, cooperative and good insight Comments: Patient understands the significance of his diabetes and his heart disease. But has not gotten his teeth fixed and continues to smoke H&P: Result Impressions 1. Chest pain of unknown cause, 2. Insulin-dependent diabetes 3. Tobacco abuse 4. Severe dental decay 5. Peripheral neuropathy with diabetic ulcer Imaging and Cardiology Chest x-ray: Additional comments: No acute findings on chest x-ray Assessment and Plan *Assessment and plan (1) Unstable angina: Status: Acute Category: Medical Code(s): I20.0 - Unstable angina (2) Coronary artery disease: Status: Acute Qualifiers: Associated angina: without angina Coronary Disease-Associated Artery/Lesion type: [place] artery [place] vs. transplanted heart: big [place] heart Qualified Code(s): I25.10 - Atherosclerotic heart disease of [place] coronary artery without angina pectoris Category: Medical Code(s): I25.10 - Atherosclerotic heart disease of [place] coronary artery without angina pectoris (3) Uncontrolled diabetes mellitus: Status: Acute Qualifiers: Diabetes mellitus type: other specified (including SIGIFREDO) Glycemic state: with hyperglycemia Qualified Code(s): E13.65 - Other specified diabetes mellitus with hyperglycemia Category: Medical Code(s): E11.65 - Type 2 diabetes mellitus with hyperglycemia (4) Diabetic neuropathy: Status: Acute Qualifiers: Diabetes mellitus complication detail: diabetic polyneuropathy Diabetes mellitus type: type 2 Qualified Code(s): E11.42 - Type 2 diabetes mellitus with diabetic polyneuropathy Category: Medical Code(s): E11.40 - Type 2 diabetes mellitus with diabetic neuropathy, unspecified (5) Diabetic foot ulcer: Status: Acute Qualifiers: Diabetes mellitus type: type 2 Diabetic foot ulcer location: toe Category: Medical Code(s): E11.621 - Type 2 diabetes mellitus with foot ulcer; L97.509 - Non-pressure chronic ulcer of other part of unspecified foot with unspecified severity (6) Dental decay: Status: Acute Category: Medical Code(s): K02.9 - Dental caries, unspecified (7) Tobacco dependence syndrome: Status: Acute Category: Medical Code(s): F17.200 - Nicotine dependence, unspecified, uncomplicated Plan 33-year-old male with history of CAD status post stenting 5 months ago. Presented with chest pain. Discussed case with ER physician, request admission for further management of unstable angina. Initiated on nitro drip. Medicine agreed to admit. Seeing some improvement but not resolution of pain by morning. Problems addressed as follows: 1. Chest pain: Do agree with the ER physician that the patient needs to be admitted. EKG without changes first troponin is negative but patient continues to have chest pain, Dr. Barrera has been contacted by phone. Patient had recent cardiac event in August taken to [facility] and had stents placed. Initial troponin less than 0.01. Repeat troponin ordered and pending - Reviewed chest x-ray, no acute pathology per my review. Kidney function normal with BUN 24, creatinine 0.7. BNP normal at 37. Repeat CMP ordered for the morning 2. Insulin-dependent diabetes : with diabetic foot ulcer being treated by doxycycline, planning to try GI cocktail and increase medication for control of heartburn. Question where there is some esophagitis that could be related to the long use of doxycycline. Also will have nursing check the toe to clean it and apply Betadine as needed. , Patient noted that he is seeing a security patrol officer for this and it has improved immensely -A1c ordered, 8.8. On long-acting insulin at home. Will can you sliding scale insulin. 3. Severe dental decay throughout entire mouth., Patient states that he is waiting to save up money so he can get all full dentures., Has not had his teeth worked on for quite some time. Teaching done on how this is a risk factor for cardiac disease. 4. Tobacco abuse: Patient continues to smoke but says he smokes less than half a pack a day, he has no plans on stopping 5. History of significant GI distress gastritis reflux, question the reflux may be some esophageal spasm question whether there is some esophagitis related to the doxycycline, to try to rule out this being a source of the chest pain., And using nitroglycerin to make sure that there is no esophageal spasm we will use a GI cocktail to provide some comfort to the esophagus to see if that improves any of this chest pain. 6. Will continue the patient on nitroglycerin drip tonight await the Dr. Barrera's treatment as he has been contacted and will see him in the morning, will continue to monitor the patient's labs white count slightly elevated. Negative for COVID at this time but has several coworkers that are positive will continue to work and monitor for any type of infection/fever or cough that could develop., Also patient mentioned that he stays cold all the time will add a thyroid panel, hemoglobin A1c and a total iron binding capacity ferritin. 7. Teaching done with the patient and his significant other of the need for dental care and how that the [facility] has a dental school that would be able to help him. Explained to him how that bacteria can into the bloodstream also causing cardiac events. Rounded on patient after nurse practitioner. Personally examined and interviewed patient. Agree with exam findings and care plan as documented.
--- NOTE | 2024-01-21 03:22 | PC.NURSE ---
Patient arrived to floor via stretcher from ED at 03:20.
--- NOTE | 2024-01-21 03:32 | PC.NURSE ---
pt password [email or web address]
[2024-01-21 04:34] LABS: HIV (1&2) Antibody Rapid NONREACTIVE (NONREACTIVE)
[2024-01-21] MEDS: DOXYCYCLINE HYCL 100 MG TABLET PO (04:45)
[2024-01-21] MEDS: MAGNESIUM SULFATE IN WATER 2 GM/50 ML PIGGYBACK IV ×2 (04:45→05:39)
[2024-01-21] MEDS: BELLADONNA ALKALOIDS 60 ML ML PO (04:45)
[2024-01-21] MEDS: FAMOTIDINE 20MG TABLET 40 MG PO (04:45)
[2024-01-21] MEDS: diphenhydrAMINE 25MG CAPSULE 25 MG PO (04:45)
[2024-01-21] MEDS: INSULIN GLARGINE 100 UNITS/ML 3ML FLEXPEN 12 UNIT SQ (06:35)
--- NOTE | 2024-01-21 07:00 | PC.NURSE ---
Pt a/o x4. Nitro gtt infusing at 15mcg/min. Pt has complained of chest pain that comes and goes since arriving to floor. States GI cocktail did not help at all. States pain is more manageable since starting nitro drip. Would to right big toe, betadine and dsg applied. Family at bedside. Call light within reach.
[2024-01-21 07:31] LABS: Troponin I < 0.01 ng/ml (0.00-0.034)
[2024-01-21 08:50] LABS: Hemoglobin A1C 8.8 % (4.0-6.0); Iron 81 ug/dL (49-181)
--- NOTE | 2024-01-21 08:57 | HMH.PHAINT1 ---
Pharmacy Intervention Comments: MEDICATION RECONCILIATION COMPLETED ON PATIENT USING EXTERNAL FILL HISTORY FROM PHARMACY AND LIST FROM CARDIOLOGY OFFICE. -[facility] WATERMAN, [place]
[2024-01-21 08:59] LABS: Total Iron Binding Capacity 303 ug/dL (261-462)
[2024-01-21 09:06] LABS: Triiodothryronine (T3) Uptake 42 % (23.5-40.5)
[2024-01-21 09:07] LABS: Free Thyroxine Index 4.2 ug/dL (5.93-13.13); T4 (Thyroxine) 9.9 ug/dl (5.53-11.0)
[2024-01-21 09:21] LABS: Thyroid Stimulating Hormone 2.71 uIU/mL (0.465-4.68)
[2024-01-21] MEDS: ASPIRIN EC 81MG TABLET 81 MG PO (09:28)
[2024-01-21] MEDS: METOPROLOL TARTRATE 25MG TABLET 25 MG PO (09:28)
[2024-01-21] MEDS: LISINOPRIL 10MG TABLET 10 MG PO (09:28)
[2024-01-21] MEDS: CLOPIDOGREL 75MG TAB 75 MG PO (09:28)
[2024-01-21] MEDS: ISOSORBIDE MONO 60MG TAB.ER.24H 60 MG PO (10:11)
--- NOTE | 2024-01-21 13:14 | EXP.DC.SUM ---
General Admission date:: 01/21/24 Discharge date: 01/21/24 HPI HPI HPI: This 33-year-old male who works at [employer] began to have chest pain tonight.. He was transported to the emergency room by ambulance. He gives a history of having a STEMI in August of this year with stents placed by Dr. Barrera. Patient has noted that at work he has several team members with COVID. And he is an insulin-dependent diabetic. That he has been taking doxycycline for quite some time for a diabetic ulcer to the great toe.. He has significant neuropathy to both feet. Also noting that he continues to smoke. And that he has extremely terrible teeth rotted down to the gums. And so far in the ER he has not received much relief from the chest pain.. He describes it as a 7 out of 10, left of center line at the lower rib cage. He noted that in a different position from when he had his STEMI chest pain. He denies any recent injuries falls or anything else that would cause musculoskeletal pain. I have discussed the patient with the emergency room physician and agree that needs to be admitted will put on a nitroglycerin drip to try to control this chest pain. Dr. Barrera has been contacted by phone. Labs indicate an increased white count. Patient also noted he felt like he had a fever. Hospital Course Hospital Course Hospital Course: 33-year-old male with significant cardiac history admitted for chest pain and concern for unstable angina. Started on nitroglycerin drip due to hypertension. Saw improvement in pain. Serial troponins were negative. Resumed home regimen with an increase in patient's isosorbide to 60 mg daily. As the morning progressed, pain resolved. Blood pressure much better controlled at 134/74. Given his elevated A1c, and insulin glargine increased to 14 units. Will need further adjustment with PCP as an outpatient. Continue blood pressure medications including metoprolol, lisinopril, aspirin, Plavix, Lipitor. Recommend following up with cardiology as an outpatient on Tuesday as he is chest pain-free. Encouraged smoking cessation. Stable to discharge home with close follow-up Exam Data for Last 24 hours Vital signs and Labs for Last 24 Hours: Temp Pulse Resp BP Pulse Ox O2 Del Method 98.0 F 60 18 134/74 98 Room Air 01/21/24 11:46 01/21/24 12:00 01/21/24 11:46 01/21/24 11:46 01/21/24 11:46 01/21/24 12:56 Laboratory Results - last 24 hr 01/21/24 01:16: WBC 14.1 H, RBC 4.73, Hgb 14.5, Hct 41.0 L, MCV 86.8, MCH 30.6, MCHC 35.3, RDW 13.3, Plt Count 330, MPV 7.1 L, Neut % (Auto) 54.3, Lymph % (Auto) 37.2, [place] % (Auto) 5.6, Eos % (Auto) 2.1, Baso % (Auto) 0.8, Neut # (Auto) 7.6, Lymph # (Auto) 5.2 H, [place] # (Auto) 0.8, Eos # (Auto) 0.3, Baso # (Auto) 0.1, PT 10.7, INR 0.95, APTT 26.9, D-Dimer < 0.25, Sodium 141, Potassium 2.0 L*, Chloride 127 H, Carbon Dioxide 17 L, Anion Gap -1.0 L, BUN 14, Creatinine 0.40 L, Estimated Creat Clear 401 H, Estimated GFR 246, Est GFR ( Amer) 298, Glucose 108 H, Calcium 4.9 L*, Total Bilirubin 0.3, AST 20, ALT 20, Alkaline Phosphatase 35 L, Troponin I < 0.01, NT-Pro-B Natriuret Pep 37.7, Total Protein 3.7 L D, Albumin 1.7 L, Globulin 2.0, Albumin/Globulin Ratio 0.9 L 01/21/24 01:18: HIV 1&2 Antibody Rapid Nonreactive 01/21/24 01:29: Sodium 135 L, Potassium 3.8 D, Chloride 109 H, Carbon Dioxide 26, Anion Gap 3.8 L, BUN 24 H D, Creatinine 0.70 D, Estimated Creat Clear 229, Estimated GFR 129, Est GFR ( Amer) 156 D, Glucose 173 H D, Calcium 9.3, Magnesium 1.7 01/21/24 01:40: SARS-CoV-2 (PCR) Not detected, Influenza A Untype (PCR) Not detected, Influenza Type B (PCR) Not detected 01/21/24 06:49: Hemoglobin A1c 8.8 H, Iron 81, TIBC 303, Iron Saturation 26.98000, TSH 2.71, Free T4 Index 4.2 L, Thyroxine (T4) 9.9, T3 Uptake 42 H 01/21/24 : Troponin I < 0.01 I & O for Last 24 hours: Intake & Output 01/18/24 01/19/24 01/20/24 01/21/24 23:59 23:59 23:59 23:59 Intake Total 352.700 / 352.700 Output Total 900 / 900 Balance -547.300 / -547.300 Weight 106.322 kg Constitutional Constitutional: no acute distress, average body habitus and cooperative *Routine HEENT Exam Head: Present normocephalic Eye: Present EOMI and PERRL ENT: Present mucous membranes moist Comments: Numerous caries, teeth broken at gumline. *Routine Neck Exam Neck: Present supple; Absent lymphadenopathy Routine Chest/Breast/Axilla Exam Chest wall: Absent tenderness *Routine Respiratory Exam Respiratory: Present CTA bilaterally; Absent rhonchi, wheezes or crackles *Routine Cardiovascular Exam Cardiovascular: Present RRR *Routine Abdominal Exam Abdominal: Present soft and normoactive bowel sounds; Absent tenderness *Routine Rectal Exam Patient deferred: visual exam *Routine Exam Patient deferred: penile exam *Routine Extremities Exam Extremities: Absent cyanosis, clubbing or edema *Routine Skin Exam Skin: Present warm; Absent rash *Routine Neurological Exam Neurological: Present alert, oriented X3 and moving all extremities; Absent altered mental status Results Data Completed and Pending Labs on day of discharge: Labs from last 24 hours 01/21/24 01/21/24 01/21/24 Unknown 06:49 01:40 WBC RBC Hgb Hct MCV MCH MCHC RDW Plt Count MPV Neut % (Auto) Lymph % (Auto) [place] % (Auto) Eos % (Auto) Baso % (Auto) Neut # (Auto) Lymph # (Auto) [place] # (Auto) Eos # (Auto) Baso # (Auto) PT INR APTT D-Dimer Sodium Potassium Chloride Carbon Dioxide Anion Gap BUN Creatinine Estimated Creat Clear Estimated GFR Est GFR ( Amer) Glucose Hemoglobin A1c 8.8 H Calcium Magnesium Iron 81 TIBC 303 Iron Saturation 26.89090 Total Bilirubin AST ALT Alkaline Phosphatase Troponin I < 0.01 NT-Pro-B Natriuret Pep Total Protein Albumin Globulin Albumin/Globulin Ratio TSH 2.71 Free T4 Index 4.2 L Thyroxine (T4) 9.9 T3 Uptake 42 H SARS-CoV-2 (PCR) Not detected HIV 1&2 Antibody Rapid Influenza A Untype (PCR) Not detected Influenza Type B (PCR) Not detected 01/21/24 01/21/24 01/21/24 01:29 01:18 01:16 WBC 14.1 H RBC 4.73 Hgb 14.5 Hct 41.0 L MCV 86.8 MCH 30.6 MCHC 35.3 RDW 13.3 Plt Count 330 MPV 7.1 L Neut % (Auto) 54.3 Lymph % (Auto) 37.2 [place] % (Auto) 5.6 Eos % (Auto) 2.1 Baso % (Auto) 0.8 Neut # (Auto) 7.6 Lymph # (Auto) 5.2 H [place] # (Auto) 0.8 Eos # (Auto) 0.3 Baso # (Auto) 0.1 PT 10.7 INR 0.95 APTT 26.9 D-Dimer < 0.25 Sodium 135 L 141 Potassium 3.8 D 2.0 L* Chloride 109 H 127 H Carbon Dioxide 26 17 L Anion Gap 3.8 L -1.0 L BUN 24 H D 14 Creatinine 0.70 D 0.40 L Estimated Creat Clear 229 401 H Estimated GFR 129 246 Est GFR ( Amer) 156 D 298 Glucose 173 H D 108 H Hemoglobin A1c Calcium 9.3 4.9 L* Magnesium 1.7 Iron TIBC Iron Saturation Total Bilirubin 0.3 AST 20 ALT 20 Alkaline Phosphatase 35 L Troponin I < 0.01 NT-Pro-B Natriuret Pep 37.7 Total Protein 3.7 L D Albumin 1.7 L Globulin 2.0 Albumin/Globulin Ratio 0.9 L TSH Free T4 Index Thyroxine (T4) T3 Uptake SARS-CoV-2 (PCR) HIV 1&2 Antibody Rapid Nonreactive Influenza A Untype (PCR) Influenza Type B (PCR) DS: Diagnosis Discharge Diagnosis (1) Unstable angina: Status: Acute Code(s): I20.0 - Unstable angina (2) Coronary artery disease: Status: Acute Code(s): I25.10 - Atherosclerotic heart disease of [place] coronary artery without angina pectoris Qualifiers: Associated angina: without angina Coronary Disease-Associated Artery/Lesion type: [place] artery [place] vs. transplanted heart: [place] heart Qualified Code(s): I25.10 - Atherosclerotic heart disease of [place] coronary artery without angina pectoris (3) Uncontrolled diabetes mellitus: Status: Acute Code(s): E11.65 - Type 2 diabetes mellitus with hyperglycemia Qualifiers: Diabetes mellitus type: other specified (including [place]) Glycemic state: with hyperglycemia Qualified Code(s): E13.65 - Other specified diabetes mellitus with hyperglycemia (4) Diabetic neuropathy: Status: Acute Code(s): E11.40 - Type 2 diabetes mellitus with diabetic neuropathy, unspecified Qualifiers: Diabetes mellitus complication detail: diabetic polyneuropathy Diabetes mellitus type: type 2 Qualified Code(s): E11.42 - Type 2 diabetes mellitus with diabetic polyneuropathy (5) Diabetic foot ulcer: Status: Acute Code(s): E11.621 - Type 2 diabetes mellitus with foot ulcer; L97.509 - Non-pressure chronic ulcer of other part of unspecified foot with unspecified severity Qualifiers: Diabetes mellitus type: type 2 Diabetic foot ulcer location: toe (6) Dental decay: Status: Acute Code(s): K02.9 - Dental caries, unspecified (7) Tobacco dependence syndrome: Status: Acute Code(s): F17.200 - Nicotine dependence, unspecified, uncomplicated Meds Home Medications and Allergies Home Medications ?Medication ?Instructions ?Recorded ?Confirmed ?Type atorvastatin 80 mg tablet 80 mg PO DAILY 08/15/23 01/21/24 History clopidogrel 75 mg tablet 75 mg PO DAILY 08/15/23 01/21/24 History doxycycline monohydrate 100 mg 100 mg PO BID 08/15/23 01/21/24 History tablet lisinopril 10 mg tablet 10 mg PO DAILY 08/15/23 01/21/24 History metoprolol tartrate 25 mg tablet 25 mg PO BID 08/15/23 01/21/24 History pantoprazole 40 mg tablet,delayed 40 mg PO BID 08/15/23 01/21/24 History release aspirin 81 mg tablet,delayed 81 mg PO DAILY 08/16/23 01/21/24 History release insulin glargine 100 unit/mL (3 14 unit (0.14 mL) SQ BID 30 days 01/21/24 01/21/24 Rx mL) subcutaneous pen (Lantus #0 mL Solostar U-100 Insulin) isosorbide mononitrate 60 mg 60 mg PO DAILY 30 days #30 tabs 01/21/24 Rx tablet,extended release 24 hr New Prescriptions to Start Prescriptions: isosorbide mononitrate Matt Jensen Allergies Allergy/AdvReac Type Severity Reaction Status Date / Time buspirone [BUSPIRONE] Allergy Unknown HEART Verified 08/23/23 11:06 PROBLEM codeine [CODEINE] Allergy Unknown I-HIVES Verified 08/23/23 11:06 fentanyl Allergy Anaphylaxis Verified 08/23/23 11:06 Discharge Plan Disposition Patient Disposition: Home, Self-Care Condition: Good Follow up Plan Follow up with: Daquan Barrera MD [Staff Physician] - 2 days (call on tuesdayJanuary 22 to schedule a follow up appointment with cardiology. ) Prescriptions/Medication Reconciliation: New isosorbide mononitrate 60 mg Tablet Extended Release 24 Hr 60 mg PO DAILY 30 Days Qty: 30 0RF Continued atorvastatin 80 mg tablet 80 mg PO DAILY clopidogrel 75 mg tablet 75 mg PO DAILY doxycycline monohydrate 100 mg tablet 100 mg PO BID pantoprazole 40 mg tablet,delayed release (DR/EC) 40 mg PO BID lisinopril 10 mg tablet 10 mg PO DAILY metoprolol tartrate 25 mg tablet 25 mg PO BID aspirin 81 mg Tablet,Delayed Release (Dr/Ec) 81 mg PO DAILY Changed insulin glargine [Lantus Solostar U-100 Insulin] 100 unit/mL (3 mL) insulin pen 14 unit SQ BID 30 Days Qty: 0 0RF Discontinued isosorbide mononitrate 30 mg tablet extended release 24 hr 30 mg PO DAILY Problem Reconciliation Problems Reviewed?: Yes Patient Discharge Instructions ACTIVITY: Continue current activity and No heavy lifting DIET: continue same diet Stand Alone Forms: [facility] Work Release Patient Instructions: DI for Chest Pain Print Language: Irish Providers Primary Care Provider: Provider,Referral Admit Provider: Matt Jensen Attending Provider: Matt Jensen
--- NOTE | 2024-01-23 14:01 | CARE MANAGER ---
Called and spoke with patient regarding recent discharge. Patient stated that he is doing well and has made changes to medication ordered at discharge. Patient also stated that he has a f/u appt scheduled with cardiology tomorrow @ 0900. No concerns/questions voiced at time of call.
[2024-01-24 14:14] LABS: HCV Ab Reactive (Non Reactive)
== END 2024-01-21 13:40 | disposition home or self-care (01) ==
LOC: ER 02:47 → 2ND 02:50
PROVIDERS: Nurse Practitioner Family; Admitting Provider Internal Medicine Adolescent Medicine; Emergency Provider Emergency Medicine; Visit Provider Internal Medicine Adolescent Medicine
DX: I25.110 Atherosclerotic heart disease of native coronary artery with unstable angina pectoris; E11.42 Type 2 diabetes mellitus with diabetic polyneuropathy; E11.621 Type 2 diabetes mellitus with foot ulcer; L97.501 Non-pressure chronic ulcer of other part of unspecified foot limited to breakdown of skin; K02.9 Dental caries, unspecified; F17.210 Nicotine dependence, cigarettes, uncomplicated; Z79.4 Long term (current) use of insulin; E11.65 Type 2 diabetes mellitus with hyperglycemia; I25.2 Old myocardial infarction; Z95.5 Presence of coronary angioplasty implant and graft; Z79.899 Other long term (current) drug therapy
CPT/HCPCS: 71046; 80048; 80053; 83036; 83540; 83550; 83735; 83880; 84436; 84443; 84479; 84484; 85025; 85378; 85610; 85730; 86803; 87389; 87636; 93005; 99285; G0378; J3475

== ENCOUNTER 2024-01-24 09:23 | Outpatient (CLI) | payer BC, SELFPAY ==
[2024-01-24 10:09] LABS: Basophils # 0.1 K/mm3 (0-0.2); Basophils % 0.7 % (0.1-2.0); Eosinophils # 0.5 K/mm3 (0.0-0.4); Eosinophils % 3.6 % (0.1-12.0); Hematocrit 37.3 % (42.0-52.0); Hemoglobin 14.5 g/dL (14.1-18.0); Lymphocytes # 4.2 K/mm3 (0.7-4.5); Lymphocytes % 31.7 % (10-50); Mean Corpuscular Hemoglobin 35.4 pg (27.0-31.2); Mean Corpuscular Volume 90.9 fl (80-94); Mean Platelet Volume 7.2 fl (7.4-10.4); Monocytes # 0.8 K/mm3 (0.1-1.0); Monocytes % 6.4 % (1.7-9.3); Neutrophils # 7.6 K/mm3 (1.8-7.8); Neutrophils % 57.6 % (37.0-80.0); Platelet Count 260 K/mm3 (142-424); Red Blood Count 4.11 M/mm3 (4.60-6.20); Red Cell Distribution Width 13.3 % (11.5-17.5); White Blood Count 13.1 K/mm3 (4.8-10.8)
[2024-01-24 10:25] LABS: Chloride 106 mmol/L (98-107)
[2024-01-24 10:26] LABS: Sodium 140 mmol/L (136-145)
[2024-01-24 10:28] LABS: Alanine Aminotransferase 28 U/L (12-78); Aspartate Amino Transferase 24 U/L (17-59); Bilirubin,Unconjugated 0.3 mg/dL (0.0-1.1); Blood Urea Nitrogen 16 mg/dl (9-20); Carbon Dioxide 31 mmol/L (22.0-30.0); Estimated Glomerular Filt Rate 97 ml/min (>60); GFR (African American) 117 ML/MIN (>60); Total Protein,Serum 6.8 g/dl (6.3-8.2)
[2024-01-24 10:29] LABS: Alkaline Phosphatase 64 U/L (38-126); Bilirubin,Direct 0.2 mg/dl (0.0-0.4); Bilirubin,Indirect 0.3 mg/dL (0.0-0.9); Bilirubin,Total 0.5 mg/dl (0.2-1.3); Calcium 9.8 mg/dl (8.4-10.2); Chol/HDL Ratio 3.6 (1-3.5); Cholesterol 108 mg/dl (140-200); Glucose 245 mg/dl (74-100); HDL Cholesterol 30 mg/dl (40-60); Magnesium 1.6 mg/dl (1.6-2.3); Triglycerides 193 mg/dl (30-150); VLDL Cholesterol 39 mg/dL (0-40)
[2024-01-24 10:40] LABS: Direct LDL Cholesterol 46.66 mg/dL (100-129)
[2024-01-24 10:44] LABS: Free T4 (Free Thyroxine) 1.23 ng/dl (0.78-2.19)
[2024-01-24 10:59] LABS: Thyroid Stimulating Hormone 3.97 uIU/mL (0.465-4.68)
== END 2024-01-24 23:59 | disposition home or self-care (01) ==
PROVIDERS: PCP Family Medicine; Visit Provider Nurse Practitioner
DX: I73.9 Peripheral vascular disease, unspecified (principal); F17.200 Nicotine dependence, unspecified, uncomplicated; E13.65 Other specified diabetes mellitus with hyperglycemia; I21.4 Non-ST elevation (NSTEMI) myocardial infarction; I25.10 Atherosclerotic heart disease of native coronary artery without angina pectoris; R00.2 Palpitations; R06.00 Dyspnea, unspecified; K21.9 Gastro-esophageal reflux disease without esophagitis; I11.9 Hypertensive heart disease without heart failure
CPT/HCPCS: 36415; 80048; 80061; 80076; 83735; 84439; 84443; 85025; 93270